=== PATIENT | male | born 1980 | race Caucasian/White ===

== ENCOUNTER 2023-11-12 21:28 | Emergency (ER) | payer OTHER, SELFPAY ==
[2023-11-12 21:31] VITALS: BP 148/107
[2023-11-12] MEDS: TORADOL 60 MG IM (23:29)
--- NOTE | 2023-11-13 00:22 | ED.MUSCINJ ---
HPI-Injury
General
Chief Complaint: Fall
Source: patient
Exam Limitations: none
Time Seen by Provider: 11/12/23 23:10
History of Present Illness-Injury
Is this injury a work related problem?: No
Is pt an associate of [facility]?: No
Initial Injury comments:
This is a 42 year old male that comes in with c/o left hip and groin pain. States that yesterday in the afternoon. he slipped in his tile floor. States that his left leg went out and he fell. States that he did the splits. States that he has had
left groin and hip pain and he was in bed all day. States that he took Tylenol PM and this did not help. States that here was no LOC and that he may have hit his head but he is not taking any thinners. States that he has had a headache and nausea.
Denies any fever, chills, chest pain, SOB, abd pain, vomiting, diarrhea, dizziness, urinary burning.
Past History
Past History
ED Past Medical History: Other (Back pain, Graves disease, Reactive airway)
ED Past Surgical History: Orthopedic (Right knee surgery) and Tonsilectomy
Social History
Tobacco: Smoker
Alcohol: None
Personal: Single
Living: alone
Review of Systems
Review of Systems
All Other Systems: ROS reviewed and negative except as documented in HPI and ROS
Constitutional: Reports no symptoms; Denies fever or chills
EENT: Reports no symptoms
Respiratory: Reports no symptoms; Denies cough or trouble breathing
Cardiac: Reports no symptoms; Denies chest pain
ABD/GI: Reports nausea; Denies abdominal pain, vomiting or diarrhea
: Reports no symptoms; Denies dysuria, frequency or urgency
Musculoskeletal: Reports joint pain (Left hip and groin pain)
Skin: Reports no symptoms
Neurological: Reports headache; Denies dizzy
Phy Exam
General Physical Exam
General Presentation: no apparent distress
General age: appears stated age
General Skin: warm and dry
General Habitus: obese
General Mental: alert
General Hydration: dry mucous membranes
ENT Exam
ENT Exam: TM's normal, pharynx normal and neck supple
Eye Exam
Eye Exam: EOMI
Cardiovascular Exam
Cardiovascular Exam: regular rate/rhythm, no edema and normal peripheral pulses
Pulmonary Exam
Pulmonary Exam: lungs clear, no respiratory distress, no rales, chest non tender, no crackles, no rhonchi, no wheezing and no cough
Gastrointestinal Exam
Gastrointestinal Exam: normal bowel sounds, non tender, soft, no organomegaly, no pulsatile mass and non distended
Musculoskeletal Exam
Musculoskeletal Exam: full ROM (Patient walked from Triage to room 35. ) and no edema
Skin Exam
Skin Exam: normal color, warm/dry, no rash and no petechia
Psychiatric Exam
Psychiatric Exam: normal mood/affect
Injury Course
Orders/Labs/Results
Orders:
Orders
11/12/23 23:26
Ketorolac [Toradol] 60 mg .ROUTE .STK-MED ONE
11/12/23 23:29
Ketorolac [Toradol] 60 mg IM NOW STA
11/13/23 00:25
CT Head W/o Iv Contrast Urgent
Comment:
Reason For Exam: Fall hitting head
11/13/23 00:44
CT Pelvis W/o Iv Contrast Urgent
Comment:
Reason For Exam: Left hip pain.
MDM/Problems Addressed
Differential Diagnosis Includes:
Contusion, Muscle pull groin
MDM/Problems Addressed:
This is a 42 year old male that comes in with c/o fall yesterday. States that he did the split on his tile floor at home. States that he has left hip and groin pain. States that there was no LOC. State that he does have a headache and nausea.
Will get X-ray of the left hip and pelvis and CT head.
Called and spoke with Halina dorantes as there was concern for a fracture at the posterior acetabulum on the left. He states again that there is no fracture. Also a text message was sent to the Radiologist biodiesel division manager for further evaluation but he did not
respond. Back into see patient. Explained that his CT of the head is normal along with the CT of the pelvic and hip. Will have patient use Tylenol and Ibuprofen for pain and alternate them. Patient can also use heat or ice which every makes him feel
better. Patient to return with any concerns.
Chronic conditions affecting care:
Obesity
Acute Exacerbation and/or Progression of Chronic Illness:
Obesity
*Radiology
Radiology exam reviewed: radiology read reviewed (CT head halina dorantes-NO acute hemorrhage, herniation or hydroccephalus. NO calvarial fracture. The visualized paranasal sinuses and mastoid air cells are clear. Pelvis- No acute fracture or traumatic
malalignment. NO significant soft tissue abnormality. )
*Pulse Oximetry
Patient hypoxic: no
*EKG
Interpreted by ED Provider?: NA
Rate: EKG- N/A
*Repairer Sash And Door Interpretation
Rate: Repairer Sash And Door- N/A
*Critical Care Note
Total Time (30-74mins, 75-104mins- exclusive of procedures): Not Applicable
ED Attending Note
-
Portions of this chart may have been created with voice recognition software.� Occasional wrong word or��sound alike� substitutions may have occurred due to the inherent limitations of voice recognition software.
Discharge Plan
Departure
Patient Disposition: Home (Routine Discharge)
Date of Disposition: 11/13/23
Time of Disposition: 02:18
Patient with high blood pressure during this ER visit?: Yes
Condition: Good
Covid-19: Not Applicable
Discharge Problem:
Contusion of left hip region
Instructions: Preventing falls in adults, Groin Strain (DC), Hip Pain ED, BLOOD PRESSURE
Referrals:
Dameon Myrick MD [Family Provider] - Call in 1-3 days for appt
Activity Restrictions/Additional Instructions:
As discussed, your CT of the head and Left hip/pelvis is negative for any acute process. You may use Tylenol 1000mg every 6 hours for pain and Ibuprofen 600mg every 6 hours with food for pain. So if you take Tylenol at 9am the Ibuprofen would be
due at 12 noon and the Tylenol at 3pm and Ibuprofen at 6pm. You may use heat or ice to the hip which ever makes you feel better. Follow up with the family doctor for recheck. IF YOU HAVE INCREASED OR CHANGING PAIN, OR YOU HAVE ANY OTHER CONCERNS
PLEASE RETURN TO THE EMERGENCY ROOM
Interventions
Interventions:
*Risk Screen - Suicide Last Done: 11/12/23 21:31
*General Assessment Last Done: 11/12/23 21:31
*Neglect/Abuse Screening Last Done: 11/12/23 21:31
*ED COVID-19 Vaccine History Last Done: 11/12/23 21:31
ED-Musculoskeletal Assessment Last Done: 11/13/23 01:03
ED- Neurological Assessment Last Done: 11/13/23 01:03
ED-Skin Assessment Last Done: 11/13/23 01:03
Discharge Date and Time
Print Language: GREEK
[2023-11-13 01:02] VITALS: BP 152/99
== END 2023-11-13 02:49 | disposition home or self-care (01) ==
LOC: EMR 21:28
PROVIDERS: EMERGENCY PHYSICIAN Student in an Organized Health Care Education/Training Program; FAMILY PHYSICIAN Internal Medicine
DX: S70.02XA Contusion of left hip, initial encounter (principal); W01.0XXA Fall on same level from slipping, tripping and stumbling without subsequent striking against object, initial encounter; F17.200 Nicotine dependence, unspecified, uncomplicated; E66.9 Obesity, unspecified
CPT/HCPCS: 99284; 96372; 70450; 72192

== ENCOUNTER 2024-04-09 04:28 | Emergency (ER) | payer OTHER, SELFPAY ==
[2024-04-09 05:05] VITALS: BP 153/116
[2024-04-09 07:37] LABS: % Basophils 0.4 % (0-2); % Eosinophils 3.1 % (0-6); % Immature Granulocytes 0.4 % (0-0.5); % Lymphocytes 28.2 % (20.5-51.1); % Monocytes 5.9 % (1.7-9.3); Absolute Basophils 0.1 10^3/uL (0-0.2); Absolute Eosinophils 0.4 10^3/uL (0-0.7); Absolute Immature Granulocytes 0.1 10^3/uL (0-0.05); Absolute Lymphocytes 3.2 10^3/uL (1.2-3.4); Absolute Monocytes 0.7 10^3/uL (0.1-0.6); Absolute Neutrophils 7.1 10^3/uL (1.4-6.5); Hemoglobin 17.3 g/dL (13.0-18.0); Mean Corp Hgb Conc. 35.3 g/dL (33.0-37.0); Mean Corpuscular Hgb 31.3 pg (27.0-31.0); Mean Corpuscular Volume 88.6 fL (80.0-94.0); Mean Platelet Volume 10.1 fL (7.4-10.4); Nucleated Red Blood Cells % 0 % (-); Platelet Count 252 10^3/uL (130-400); Red Blood Cell Count 5.53 10^6/uL (4.70-6.10); Red Cell Dist. Width 12.1 % (11.5-14.5); White Blood Cell Count 11.4 10^3/uL (4.8-10.8)
[2024-04-09 07:52] LABS: ALT (SGPT) 66 U/L (0-50); AST (SGOT) 34 U/L (17-59); Albumin 5.1 g/dl (3.5-5.0); Alkaline Phosphatase 77 U/L (38-126); Blood Urea Nitrogen 14 mg/dl (9-20); Calcium 9.5 mg/dl (8.4-10.2); Carbon Dioxide 20 mmol/L (22-30); Chloride 105 mmol/L (98-107); Glucose 135 mg/dl (70-99); Potassium 4.6 mmol/L (3.5-5.1); Sodium 139 mmol/L (135-145); Total Protein 8.2 g/dl (6.3-8.2); eGFR > 60.00
[2024-04-09 08:02] LABS: NT-proBNP < 20.0 pg/ml; Troponin I < 0.012 ng/ml
--- NOTE | 2024-04-09 08:36 | ED.GENMED ---
History of Present Illness
General
Chief Complaint: Weakness
Source: patient
Exam Limitations: none
Time Seen by Provider: 04/09/24 08:19
History of Present Illness
History of Present Illness:
43-year-old male presents with 1 months worth of cough and shortness of breath. He also notes pain to the left side of the chest worse with breathing and coughing. He denies hemoptysis. He was thought to have bronchitis. He was given a course of
amoxicillin and prednisone. He felt slightly better when he started taking the medicine however symptoms have returned. He has been off of the medicine for about a week. No recent travel or surgery. He is thought to have Graves' disease. No
other complaints at this time
Past History
Past History
ED Past Medical History: Other (Back pain, Graves disease, Reactive airway)
ED Past Surgical History: Orthopedic (Right knee surgery) and Tonsilectomy
Social History
Tobacco: Smoker
Alcohol: None
Personal: Single
Living: alone
Phy Exam
Physical Exam
Physical Exam:
General: Unkempt obese male with increased work of breathing
HEENT: Normocephalic atraumatic
Heart: Tachycardic but regular
Lungs: Breath sounds diminished bilaterally secondary to body habitus
Extremities: No cyanosis or edema
Sepsis
Sepsis Screening
Sepsis Assessment: Sepsis Ruled Out
Sepsis Screen
Sepsis Screen: Sepsis Ruled Out
Date: 04/09/24
Time: 12:29
Course
Orders/Labs/Results
Orders:
Orders
04/09/24 04:57
Electrocardiogram (*1) Urgent
Reason for Study: Other
Other Reason for Exam: Respiratory Distress
Cardiac Monitoring- Treatment ONCE
EKG- Treatment ONCE
IV Insert/Care/Rem.- Treatment PRN
O2 Therapy [RESP] Urgent
Titrate/Wean O2 to maintain O2 sat greater than (%): 93
Special Instructions: TO MAINTAIN CONTINUOUS O2 SATS >/= 93%
Pulse Ox/cont/shift [RESP] Urgent
Quantity: 1
Special Instructions: continuous pulse ox
04/09/24 07:17
Complete Blood Count/With Diff Urgent
Comprehensive Metabolic Panel Urgent
Free T4 Urgent
NT-proBNP Urgent
TSH Reflex To Free T4 Urgent
Comment: ADD ON
Troponin I Urgent
04/09/24 08:35
Add On- LAB Urgent
Tests Added?: tsh reflex to t4
CT Chest PE Study Urgent
Comment:
Reason For Exam: sob, cough, tachycardia
Ipratropium/Albuterol Sulfate [Duoneb] 3 ml INH R NOW STA
04/09/24 09:01
COVID-19 Antigen Urgent
Source: Nasal Swab
Influenza A+B Rapid Molecular Urgent
EMILEE Source: Nasal Swab
Specimen Description:
Abnormal Lab Results
04/09/24
07:17
WBC 11.4 H 10^3/uL
(4.8-10.8)
MCH 31.3 H pg
(27.0-31.0)
Abs Immat Gran (auto) 0.1 H 10^3/uL
(0-0.05)
Absolute Neuts (auto) 7.1 H 10^3/uL
(1.4-6.5)
Absolute Monos (auto) 0.7 H 10^3/uL
(0.1-0.6)
Carbon Dioxide 20 L mmol/L
(22-30)
Glucose 135 H mg/dl
(70-99)
ALT 66 H U/L
(0-50)
Albumin 5.1 H g/dl
(3.5-5.0)
TSH (Reflex) 0.05 L uIU/ml
(0.47-4.68)
04/09/24 07:17
04/09/24 07:17
Vital Signs
Initial and Last Documented VS:
Initial Vital Signs
Temp Pulse Resp BP Pulse Ox
98.7 F 119 24 153/116 97
04/09/24 05:05 04/09/24 05:05 04/09/24 05:05 04/09/24 05:05 04/09/24 05:05
Last Documented Vital Signs
Temp Pulse Resp BP Pulse Ox
98.7 F 101 17 144/91 93
04/09/24 05:05 04/09/24 10:15 04/09/24 10:15 04/09/24 09:03 04/09/24 10:15
MDM/Problems Addressed
Differential Diagnosis Includes:
Patient here with persistent cough and shortness of breath. Consider bronchitis versus pneumonia versus PE. He does have left-sided chest wall discomfort worse with coughing and breathing. Consider chest wall strain versus rib fracture versus PE.
He is tachycardic could be related to his respiratory illness versus underlying Graves' disease. TSH added.
Due to the resting tachycardia shortness of breath with pleuritic pain ordered PE study. DuoNeb ordered as well
*Critical Care Note
Total Time (30-74mins, 75-104mins- exclusive of procedures): Not Applicable
Update Note
Update Note:
Workup here negative. PE study negative for PE or pneumonia or fracture. Free thyroid hormone is normal. Suspect continuation of bronchitis. Will prescribe inhaler steroid and an antibiotic to cover.
ED Attending Note
-
Portions of this chart may have been created with voice recognition software.� Occasional wrong word or��sound alike� substitutions may have occurred due to the inherent limitations of voice recognition software.
Discharge Plan
Departure
Patient Disposition: Home (Routine Discharge)
Date of Disposition: 04/09/24
Time of Disposition: 12:25
Patient with high blood pressure during this ER visit?: No
Discharge Problem:
Acute bronchitis
Instructions: Acute Bronchitis, Adult (DC)
Prescriptions:
New
doxycycline hyclate 100 mg tablet
100 mg PO BID Qty: 14 0RF
albuterol sulfate [Ventolin HFA] 90 mcg/actuation HFA aerosol inhaler
1 inh inhalation Q6H PRN (Reason: shortness of breath or wheezing) Qty: 1 0RF
prednisone 10 mg Tablet
See Rx Instructions .ROUTE .COMPLEX Qty: 45 0RF
Rx Instructions:
Take By Mouth:
50 mg daily x3 days, 40 mg daily x3 days,
30 mg daily x3 days, 20 mg daily x3 days,
10 mg daily x3 days
Referrals:
Timothy Reynolds MD [Family Provider] -
Activity Restrictions/Additional Instructions:
Take medicine as directed. Please return here for worsening symptoms otherwise follow-up with your doctor. As discussed, your thyroid is normal
Interventions
Interventions:
*Risk Screen - Suicide Last Done: 04/09/24 05:05
*General Assessment Last Done: 04/09/24 05:05
*Neglect/Abuse Screening Last Done: 04/09/24 05:05
ED- Fall Risk Assessment Last Done: 04/09/24 05:05
*ED COVID-19 Vaccine History Last Done: 04/09/24 05:05
ED- Cardiac Assessment Last Done: 04/09/24 10:14
ED- Neurological Assessment Last Done: 04/09/24 10:14
ED- Pulmonary Assessment Last Done: 04/09/24 10:14
Discharge Date and Time
Print Language: BULGARIAN
[2024-04-09 09:03] VITALS: BP 144/91
[2024-04-09 09:15] VITALS: BMI 57.6
[2024-04-09] MEDS: DUONEB 3 ML INH (09:18)
[2024-04-09 09:45] LABS: COVID-19 Antigen Negative (Negative)
[2024-04-09 10:45] LABS: TSH Reflex To Free T4 0.05 uIU/ml (0.47-4.68)
[2024-04-09 11:29] LABS: Free T4 1.39 ng/dl (0.78-2.19)
== END 2024-04-09 13:02 | disposition home or self-care (01) ==
LOC: EMR 04:28
PROVIDERS: Emergency Medicine; Physician Assistant; EMERGENCY PHYSICIAN Emergency Medicine; FAMILY PHYSICIAN Internal Medicine
DX: J20.9 Acute bronchitis, unspecified (principal); F17.200 Nicotine dependence, unspecified, uncomplicated
CPT/HCPCS: 94640; 99284; 71275; 80053; 83880; 84439; 84443; 84484; 85025; 87502; 87811; 93005; Q9967

== ENCOUNTER 2024-04-23 16:30 | Emergency (ER) | payer OTHER, SELFPAY ==
[2024-04-23 16:31] VITALS: BP 171/108
--- NOTE | 2024-04-23 16:38 | EDRN ---
pt. very agitated in triage. states he does not want to 'wait around for nine hours like last time.' Pt. made aware of the longest wait time. RN offered blood work but pt stating he does want some one 'doesn't know what they are doing,' as he states
last time he had bruising from the blood work. RN explained that even with the most experienced product grader, bruising can still occur. Pt. states 'not if they're trained right and know what they're doing.' RN explained that all the staff is is
properly trained but it can still occur. RN offered to the pt that he can just wait to speak to one of the doctors in the back if he doesn't want to get blood work done now due to pt's agitated status over getting the blood work done currently. Pt.
agreed to wait and RN made made sure he understood that waiting on blood work could prolong his time here and pt continued to be agitated and make remarks about the staff. Pt. asked to leave the room and sit in the waiting room. Another RN came into
room due to pt's agitated comments to help juvenile correctional officer in asking pt. to sit and wait in the waiting room. Pt. barged back into triage room twice to continue on about the staff and how he's not the one that is agitated. Pt. asked to leave by RNs and
wait in the waiting room. Security called at this time to escort pt. back to waiting room.
--- NOTE | 2024-04-23 20:12 | ED.GENMED ---
History of Present Illness
General
Chief Complaint: Cold/Flu/URI Symptoms
Source: patient and records
Exam Limitations: none
Time Seen by Provider: 04/23/24 19:58
History of Present Illness
History of Present Illness:
43yoM with a history of obesity and tobacco use presenting for evaluation of a cough and sore throat. Patient states he has been sick since March 07. He reports a sore throat, cough, and racing heart. He had fevers at symptom onset which have
resolved. His cough seems to be improving but his sore throat is lingering and he continues to have hoarseness. He was seen by his PCP at symptom onset and was given a prescription for amoxicillin and prednisone. He was also seen in the ED about
2 weeks ago for similar complaints. He had a workup done including a CTA chest which was unremarkable. He was diagnosed with bronchitis and given a prescription for doxycycline, prednisone, and albuterol inhaler. Patient is here with persistent
symptoms.
Past History
Past History
ED Past Medical History: Other (Back pain, Graves disease, Reactive airway)
ED Past Surgical History: Orthopedic (Right knee surgery) and Tonsilectomy
Social History
Tobacco: Smoker
Alcohol: None
Personal: Single
Living: alone
Phy Exam
General Physical Exam
General Presentation: well appearing and no apparent distress
General age: appears stated age
General Skin: warm and dry
General Habitus: normal
General Mental: alert
ENT Exam
ENT Exam: TM's normal, neck supple and pharyngeal erythema (Erythema present to posterior oropharynx. No tonsillar exudates. Uvula midline. No trismus. Normal phonation. Tolerating oral secretions without difficulty. )
Cardiovascular Exam
Cardiovascular Exam: regular rate/rhythm and no murmur
Pulmonary Exam
Pulmonary Exam: lungs clear, no respiratory distress, no rales, no crackles, no rhonchi and no wheezing
Neurological Exam
Neurological Exam: alert
Anton Coma Scale
Eye Opening: Spontaneous
Verbal Response: Oriented
Motor Response: Obeys Commands
GCS Total Score: 15
Skin Exam
Skin Exam: normal color and warm/dry
Psychiatric Exam
Psychiatric Exam: anxious
Course
Orders/Labs/Results
Orders:
Orders
04/23/24 20:11
Electrocardiogram (*1) Urgent
Reason for Study: Chest Pain
EKG- Treatment ONCE
CR Chest - 2 Views Urgent
Comment:
Reason For Exam: CP
04/23/24 20:21
COVID-19 Antigen Urgent
Source: Nasal Swab
Complete Blood Count/With Diff Urgent
Comprehensive Metabolic Panel Urgent
Free T4 Urgent
Magnesium Urgent
Monotest Urgent
TSH Reflex To Free T4 Urgent
Troponin I Urgent
Rapid Strep Group A Urgent
EMILEE Source: Throat/Pharynx
Specimen Description:
Date Specimen was Collected: 04/23/24
Time Specimen was Collected: 20:13
04/23/24 21:08
Influenza A+B Rapid Molecular Urgent
EMILEE Source: Nasal Swab
Specimen Description:
04/23/24 22:31
Troponin I Urgent
04/23/24 23:02
RSV [Respiratory Syncytial Virus] Urgent
EMILEE Source: Nasalpharynx
Specimen Description:
Date Specimen was Collected: 04/23/24
Time Specimen was Collected: 22:55
Abnormal Lab Results
04/23/24
20:21
WBC 15.8 H 10^3/uL
(4.8-10.8)
MCH 31.1 H pg
(27.0-31.0)
Abs Immat Gran (auto) 0.1 H 10^3/uL
(0-0.05)
Absolute Neuts (auto) 12.0 H 10^3/uL
(1.4-6.5)
Absolute Monos (auto) 0.8 H 10^3/uL
(0.1-0.6)
Immature Gran % 0.6 H %
(0-0.5)
Neutrophils % 76.1 H %
(42.2-75.2)
Lymphocytes % 16.8 L %
(20.5-51.1)
Glucose 108 H mg/dl
(70-99)
ALT 61 H U/L
(0-50)
TSH (Reflex) 0.06 L uIU/ml
(0.47-4.68)
04/23/24 20:21
04/23/24 20:21
Vital Signs
Initial and Last Documented VS:
Initial Vital Signs
Temp Pulse Resp BP Pulse Ox
97.9 F 101 20 171/108 96
04/23/24 16:31 04/23/24 16:31 04/23/24 16:31 04/23/24 16:31 04/23/24 16:31
Last Documented Vital Signs
Temp Pulse Resp BP Pulse Ox
98.2 F 99 20 148/99 99
04/23/24 22:56 04/24/24 00:00 04/24/24 00:00 04/24/24 00:00 04/24/24 00:00
MDM/Problems Addressed
Differential Diagnosis Includes:
43yoM here with ongoing sore throat and cough x 6 weeks. Seen by PCP and had prior ED visit for the same. Prescribed 2 courses of abx and steroids. Cough improved but sore throat unchanged. Also c/o heart racing. He is hypertensive with otherwise
reassuring vitals. There is erythema in the posterior oropharynx without clinical signs of [employer] PRODUCT CONSULTANT, RPA, epiglottitis. Differential diagnosis includes but is not limited to: laryngitis, viral illness, irritation from coughing, GERD
Initial ED plan: Check cardiac labs, TSH, COVID/flu swab, mono testing, strep swab, EKG, and CXR.
*EKG
Interpreted by ED Provider?: Yes
EKG Intrepretation Date: 04/23/24
Heart Rate: 94
Rate: normal
Rhythm: sinus
[place]: normal axis
Interval: normal interval
QRS Pattern: normal QRS
Ischemia: no ischemia
*Critical Care Note
Total Time (30-74mins, 75-104mins- exclusive of procedures): Not Applicable
Update Note
Update Note:
TSH low at 0.06 although T4 is normal. This is consistent with labs from 2 weeks ago. Leukocytosis noted with a WBC of 15 which is nonspecific. Remainder of labs unremarkable. EKG shows NSR without ischemic changes and troponin is WNL. Strep and
COVID/flu/RSV testing negative. CXR appears clear per my interpretation, formal radiology report is pending. No indication for hospitalization at this time. No indication for additional antibiotics and steroids did not seem to help him previously.
Supportive care discussed. He was advised to f/u with his PCP and ENT. ED return precautions discussed. Patient in agreement with plan and was discharged in stable condition.
ED Attending Note
-
Portions of this chart may have been created with voice recognition software.� Occasional wrong word or��sound alike� substitutions may have occurred due to the inherent limitations of voice recognition software.
Discharge Plan
Departure
Patient Disposition: Home (Routine Discharge)
Date of Disposition: 04/24/24
Time of Disposition: 00:04
Patient with high blood pressure during this ER visit?: Yes
Discharge Problem:
Laryngitis, Palpitations
Instructions: Laryngitis ED
Prescriptions:
No Action
No Current Medications
0
Referrals:
Mega Stacy MD [Active] -
Timothy Reynolds MD [Family Provider] -
Macy Junior MD [Active] -
Activity Restrictions/Additional Instructions:
Continue using honey and salt water gargles for your sore throat.
Please call on Thursday to schedule a follow-up with ENT and your family doctor. Return to the ER with any new or worsening symptoms.
Interventions
Interventions:
*Risk Screen - Suicide Last Done: 04/23/24 16:31
*General Assessment Last Done: 04/23/24 16:31
*Neglect/Abuse Screening Last Done: 04/23/24 16:31
ED- Fall Risk Assessment Last Done: 04/23/24 23:35
*ED COVID-19 Vaccine History Last Done: 04/23/24 20:17
*Nursing Disposition Last Done: 04/24/24 00:28
ED-EENT Assessment Last Done: 04/23/24 23:35
ED- Pulmonary Assessment Last Done: 04/23/24 23:35
Discharge Date and Time
Discharge Date/Time: 04/24/24 00:29
Print Language: VIETNAMESE
[2024-04-23 20:15] VITALS: BMI 54.3
[2024-04-23 20:39] LABS: % Basophils 0.3 % (0-2); % Eosinophils 1.2 % (0-6); % Immature Granulocytes 0.6 % (0-0.5); % Lymphocytes 16.8 % (20.5-51.1); % Neutrophils 76.1 % (42.2-75.2); Absolute Eosinophils 0.2 10^3/uL (0-0.7); Absolute Immature Granulocytes 0.1 10^3/uL (0-0.05); Absolute Lymphocytes 2.7 10^3/uL (1.2-3.4); Absolute Monocytes 0.8 10^3/uL (0.1-0.6); Hematocrit 48.4 % (39.0-52.0); Mean Corp Hgb Conc. 35.1 g/dL (33.0-37.0); Mean Corpuscular Hgb 31.1 pg (27.0-31.0); Mean Corpuscular Volume 88.5 fL (80.0-94.0); Mean Platelet Volume 9.2 fL (7.4-10.4); Nucleated Red Blood Cells % 0 % (-); Platelet Count 260 10^3/uL (130-400); Red Blood Cell Count 5.47 10^6/uL (4.70-6.10); Red Cell Dist. Width 12.3 % (11.5-14.5); White Blood Cell Count 15.8 10^3/uL (4.8-10.8)
[2024-04-23 20:50] VITALS: BP 134/85
[2024-04-23 21:00] LABS: ALT (SGPT) 61 U/L (0-50); AST (SGOT) 27 U/L (17-59); Albumin 4.6 g/dl (3.5-5.0); Alkaline Phosphatase 81 U/L (38-126); Blood Urea Nitrogen 13 mg/dl (9-20); Calcium 9.4 mg/dl (8.4-10.2); Carbon Dioxide 22 mmol/L (22-30); Chloride 104 mmol/L (98-107); Estimated Creatinine Clearance > 125 ml/min; Glucose 108 mg/dl (70-99); Magnesium 1.9 mg/dl (1.6-2.3); Potassium 4.3 mmol/L (3.5-5.1); Sodium 137 mmol/L (135-145); Total Bilirubin 1.1 mg/dl (0.2-1.3); Total Protein 7.2 g/dl (6.3-8.2); eGFR > 60.00
[2024-04-23 21:04] LABS: COVID-19 Antigen Negative (Negative); Troponin I < 0.012 ng/ml
[2024-04-23 21:13] LABS: Monotest Negative (Negative)
[2024-04-23 21:30] LABS: TSH Reflex To Free T4 0.06 uIU/ml (0.47-4.68)
[2024-04-23 22:00] LABS: Free T4 1.38 ng/dl (0.78-2.19)
[2024-04-23 22:56] VITALS: BP 156/116
[2024-04-23 23:00] LABS: Troponin I < 0.012 ng/ml
[2024-04-24] VITALS: BP 148/99
== END 2024-04-24 00:29 | disposition home or self-care (01) ==
LOC: EMR 16:30
PROVIDERS: Physician Assistant; EMERGENCY PHYSICIAN Student in an Organized Health Care Education/Training Program; FAMILY PHYSICIAN Internal Medicine
DX: J04.0 Acute laryngitis (principal); R00.2 Palpitations; F17.200 Nicotine dependence, unspecified, uncomplicated; Z11.52 Encounter for screening for COVID-19
CPT/HCPCS: 99285; 71046; 80053; 83735; 84439; 84443; 84484; 85025; 86308; 87070; 87502; 87807; 87811; 87880; 93005

== ENCOUNTER 2025-02-03 11:42 | Inpatient (IN) | payer OTHER, SELFPAY ==
[2025-02-03] VITALS (7 sets, daily range): BP systolic 130–166; BP diastolic 82–124; BMI 58.6
[2025-02-03 09:45] LABS: Hematocrit 47.5 % (39.0-52.0); Hemoglobin 17.1 g/dL (13.0-18.0); Mean Corp Hgb Conc. 36.0 g/dL (33.0-37.0); Mean Corpuscular Volume 87.2 fL (80.0-94.0); Nucleated Red Blood Cells % 0 % (-); Platelet Count 240 10^3/uL (130-400); Red Cell Dist. Width 12.1 % (11.5-14.5)
[2025-02-03 10:05] LABS: ALT (SGPT) 68 U/L (0-50); AST (SGOT) 29 U/L (17-59); Albumin 4.7 g/dl (3.5-5.0); Alkaline Phosphatase 117 U/L (38-126); Blood Urea Nitrogen 13 mg/dl (9-20); Calcium 10.2 mg/dl (8.4-10.2); Carbon Dioxide 22 mmol/L (22-30); Chloride 100 mmol/L (98-107); Glucose 484 mg/dl (70-99); Potassium 4.6 mmol/L (3.5-5.1); Sodium 131 mmol/L (135-145); Total Protein 7.8 g/dl (6.3-8.2); eGFR > 60.00
--- NOTE | 2025-02-03 11:09 | ED.GENMED ---
History of Present Illness
General
Chief Complaint: Skin Problem
Source: patient
Exam Limitations: none
Time Seen by Provider: 02/03/25 10:52
History of Present Illness
History of Present Illness:
44-year-old male complaining of left medial thigh pain swelling and bleeding. Went to urgent care today. Bleeding was significant in urgent care. No fever or chills. Has also noted frequency and urgency.
Past History
Past History
ED Past Medical History: Other (Back pain, Graves disease, Reactive airway)
ED Past Surgical History: Orthopedic (Right knee surgery) and Tonsilectomy
Social History
Tobacco: Smoker
Alcohol: None
Personal: Single
Living: alone
Review of Systems
Review of Systems
All Other Systems: Not applicable
Constitutional: Denies fever or chills
Respiratory: Reports no symptoms
Cardiac: Reports no symptoms
Phy Exam
Physical Exam
Physical Exam:
GENERAL: Alert and oriented. Anxious. Significant elevated BMI
EYE: Orbits normal.
NECK: Supple
CARDIAC: Regular rate and rhythm without any obvious murmurs.
LUNGS: Clear breath sounds,normal
ABDOMEN: Soft, without focal tenderness or distention. Elevated BMI
NEUROLOGICAL: Alert and oriented , grossly non-focal
SKIN: Warm and dry, large area of swelling erythema to the left medial proximal thigh with tenderness and fluctuance. Superficial to this appears to be an inflamed varicose vein with slight bleeding
MUSCULOSKELETAL: No edema,no deformity.Good color
PSYCH: Normal and appropriate interaction.
Sepsis
Sepsis Screening
Sepsis Assessment: Sepsis
Sepsis Screen
Sepsis Screen: Sepsis
Date: 02/03/25
Time: 15:06
Course
Orders/Labs/Results
Orders:
Orders
02/03/25 09:36
Complete Blood Count/With Diff Urgent
Comprehensive Metabolic Panel Urgent
Glycohemoglobin (HgbA1c) Urgent
Lactic Acid Urgent
02/03/25 10:52
Cardiac Monitoring- Treatment ONCE
IV Insert/Care/Rem.- Treatment PRN
0.9% Sodium Chloride 1000 ml [Nss] 1,000 ml IV BOLUS
02/03/25 10:53
Piperacillin/Tazo 4.5 Gram [Zosyn] 4.5 gram in 100 ml IV NOW
02/03/25 10:59
Vancomycin [Vancocin] 2,000 mg 0.9% Sodium Chloride 500 ml [Nss] 500 ml IV NOW
02/03/25 11:04
Add On- LAB Stat
Tests Added?: Hba1c
Nursing to Place Non Medication Order As Directed
Physician Order: please do med rec
Above order entered?: Yes
02/03/25 11:05
B-Hydroxybutyrate Urgent
Blood Culture Q30M
EMILEE Source: Blood/Venous
Specimen Description:
Blood Culture Q30M
EMILEE Source: Blood/Venous
Specimen Description:
02/03/25 11:11
CT Lower Ext W/iv Cont Lt Urgent
Comment:
Reason For Exam: Left proximal thigh abscess
02/03/25 11:16
Diabetes Management by Nurse Practitioner Stat
Consulting Provider: Oriana Medina
Was provider already notified?: Yes
Reason for Consult: Insulin Management
Urinalysis Reflex To Culture Urgent
Date Specimen was Collected: 02/03/25
Time Specimen was Collected: 11:15
Urine Microscopic Reflex Cult Urgent
Urine Culture Urgent
EMILEE Source: U
Specimen Description:
Date Specimen was Collected: 02/03/25
Time Specimen was Collected: 11:15
02/03/25 11:21
Lorazepam [Ativan] 0.5 mg PO NOW STA
02/03/25 11:32
Admit/Transfer Patient As Directed
Co-Sign Provider:
Level of Care: Inpatient admission
Assign to:: IMU- Intermediate Care
Physician / Group: Sera
Diagnosis: sepsis, L thigh abscess
Reason for Hospitalization: sepsis
Expected length of stay greater than two midnights?: Yes
ELOS- Estimated Length of Stay in days: 4
I certify the patient meets the requirements for IP care: Yes
PRN Pain Medication Management As Directed
May give lesser potent ordered pain med per pt: Yes
preference::
Protocol:: Medication orders for pain may be administered in a
manner that supports deferring to patient preference
when the pt is:
- Requesting an ordered lesser potent pain medication.
Least to most potent pain medications are defined
as: acetaminophen < NSAID < tramadol < opioids
(morphine, oxycodone, hydromorphone).
- Requesting a lesser dose of the same medication IF
ORDERED.
- Requesting a less intrusive route of administration
if both routes are prescribed by the provider (PO <
IV).
02/03/25 11:33
Code Status As Directed
Resuscitation Status: Full Code
02/03/25 11:35
Lactated Ringers [Lr] 2,750 ml IV BOLUS
02/03/25 11:36
Add On- LAB Routine
Tests Added?: a1c
02/03/25 11:38
Insulin Glargine Lantus [Lantus] 15 units Subcutaneous Insulin Syringe [Syringe-Insulin] 0 unit SC NOW
02/03/25 12:00
Insulin Aspart [NOVOLOG vial] 12 units SC ONCE ONE
02/03/25 13:33
Dextrose 50%-Water [Dextrose 50% Syringe] 12.5 grams IV [id number] PRN
Glucagon [GlucaGen] 1 mg IM PRN PRN
Lactated Ringers [Lr] 1,000 ml IV 125 mls/hr
Methimazole [Tapazole] 7.5 mg PO QPM
Metoprolol Xl [Toprol Xl] 25 mg PO QPM
02/03/25 13:33
INFECTIOUS DISEASE CONSULT Routine
Consulting Provider: Angie Bermudez
Was physician already notified: Yes
Reason for consult: sepsis, L thigh abscess
Activity As Directed
Activity Level: With Assistance
Bedside Glucose Monitoring As Directed
Frequency: AC&HS
Additional Instructions:: Change to q6h if pt on TPN, tube feeding or not eating
Intake/ Output As Directed
Frequency: Per unit guidelines
Vital Signs As Directed
Frequency: Per unit guidelines
DX Deep Vein Thrombosis Video Routine
02/03/25 14:16
Lactic Acid Q4H
Comment: repeat q4 hours x 4 or until less than 2 mmol/L
02/03/25 16:30
Insulin Aspart Corrective Mod [Novolog Flexpen-Moderate Resistance] See Protocol SC AC
02/03/25 17:00
Piperacillin/Tazo 4.5 Gram [Zosyn] 4.5 gram in 100 ml IV Q6H
02/03/25 17:33
Lactic Acid Q4H
Comment: repeat q4 hours x 4 or until less than 2 mmol/L
02/03/25 18:00
Enoxaparin Sodium [Lovenox] 40 mg SC QPM
02/03/25 21:33
Lactic Acid Q4H
Comment: repeat q4 hours x 4 or until less than 2 mmol/L
02/04/25 01:33
Lactic Acid Q4H
Comment: repeat q4 hours x 4 or until less than 2 mmol/L
02/04/25 06:00
Basic Metabolic Panel IN AM
Complete Blood Count/No Diff IN AM
Glycohemoglobin (HgbA1c) IN AM
02/05/25 06:00
Basic Metabolic Panel IN AM
Complete Blood Count/No Diff IN AM
02/06/25 06:00
Basic Metabolic Panel IN AM
Complete Blood Count/No Diff IN AM
02/07/25 06:00
Basic Metabolic Panel IN AM
Complete Blood Count/No Diff IN AM
02/08/25 06:00
Basic Metabolic Panel IN AM
Complete Blood Count/No Diff IN AM
02/09/25 06:00
Basic Metabolic Panel IN AM
Complete Blood Count/No Diff IN AM
02/10/25 06:00
Basic Metabolic Panel IN AM
Complete Blood Count/No Diff IN AM
Abnormal Lab Results
02/03/25 02/03/25
09:36 11:16
WBC 12.4 H 10^3/uL
(4.8-10.8)
MCH 31.4 H pg
(27.0-31.0)
MPV 10.8 H fL
(7.4-10.4)
Abs Immat Gran (auto) 0.1 H 10^3/uL
(0-0.05)
Absolute Neuts (auto) 8.7 H 10^3/uL
(1.4-6.5)
Absolute Monos (auto) 1.0 H 10^3/uL
(0.1-0.6)
Immature Gran % 0.6 H %
(0-0.5)
Lymphocytes % 18.4 L %
(20.5-51.1)
Sodium 131 L mmol/L
(135-145)
Glucose 484 H* mg/dl
(70-99)
Hemoglobin A1c 9.5 H %
(4.0-5.9)
Lactic Acid 3.5 H mmol/L
(0.7-2.0)
ALT 68 H U/L
(0-50)
Urine Bacteria (Reflex) Moderate A
(Negative)
Urine Glucose 4+ A
(Negative)
Urine Albumin (Reflex) 1+ A
(Neg - Trace)
02/03/25 09:36
02/03/25 09:36
Vital Signs
Initial and Last Documented VS:
Initial Vital Signs
Temp Pulse Resp BP
98.0 F 129 25 149/106
02/03/25 09:22 02/03/25 09:22 02/03/25 09:22 02/03/25 09:22
Last Documented Vital Signs
Temp Pulse Resp BP
98.5 F 116 17 130/104
02/03/25 13:48 02/03/25 13:30 02/03/25 13:30 02/03/25 11:21
MDM/Problems Addressed
Differential Diagnosis Includes:
Patient with a large infected abscess left medial thigh. Lactic acid is elevated although clinically not septic. Doubt DKA. Bicarb normal. Beta hydroxybutyrate pending. Discussed with medicine and surgery. Will get CT scan.
*Radiology
Radiology exam reviewed: radiology read reviewed (Edematous changes of the soft tissue of the medial thigh. No obvious abscess)
*Pulse Oximetry
Oxygen Mode of Delivery: Room air
Patient hypoxic: not evaluated
*Critical Care Note
Total Time (30-74mins, 75-104mins- exclusive of procedures): Not Applicable
Data Reviewed
Review of Other/Old Records Reveals: Labs, Records and Testing
ED Attending Note
-
Portions of this chart may have been created with voice recognition software.� Occasional wrong word or��sound alike� substitutions may have occurred due to the inherent limitations of voice recognition software.
Discharge Plan
Departure
Patient Disposition: Admit
Date of Disposition: 02/03/25
Time of Disposition: 11:12
Presentation/result/management discussed w/ accepting MD/DO: General surgery
Discharge Problem:
Left proximal thigh abscess, New onset diabetes
Interventions
Interventions:
*Risk Screen - Suicide Last Done: 02/03/25 09:22
*General Assessment Last Done: 02/03/25 12:31
*Neglect/Abuse Screening Last Done: 02/03/25 12:30
*ED- Fall Risk Assessment Last Done: 02/03/25 12:30
*ED COVID-19 Vaccine History Last Done: 02/03/25 12:31
*ED Influenza Vaccine History Last Done: 02/03/25 12:31
*Nursing Disposition Last Done: 02/03/25 13:45
Discharge Date and Time
Discharge Date/Time: 02/03/25 13:45
[2025-02-03] MEDS: ZOSYN 100 IV ×3 (11:13→23:07)
[2025-02-03] MEDS: NSS 1000 IV (11:13)
--- NOTE | 2025-02-03 11:17 | HPS.HSE ---
Family Physician
-
Family Physician: INTERVIEWE UNKNOWN - PT NOT
Chief Complaint
-
L thigh pain, swelling, and bleeding
History of Present Illness
44 y/o M with PMHx Graves disease who p/w CC L thigh pain, swelling, and bleeding patient reports that symptoms began 3 to 4 days ago and have progressively worsened. He went to urgent care and had some bleeding at the site that appears to have
been due to a varicose vein. Denies any fevers. Does report that he has had increased thirst and polyuria. Denies any other acute complaints.
Medical History
Past Medical History
Past Medical History: Reports Other (as per HPI)
Past Surgical History: Reports Other (N/A)
Social History
Tobacco: Smoker
Alcohol: Occasional
Drug: Other (THC)
Family History
Family History: Not pertinent
Allergies / Home Medications
Allergies reflects when Allergies were last updated in [facility].
Home Medications with original date entered in [facility]
Allergy/Medication List:
Allergies
Allergy/AdvReac Type Severity Reaction Status Date / Time
No Known Allergies Allergy Verified 02/03/25 09:28
Home Medications
Medical Marijuana 1 inh inhalation HS Pain 02/03/25
methimazole 5 mg tablet 7.5 mg PO QPM Thyroid 02/03/25
metoprolol succinate 25 mg tablet,extended release 24 hr 25 mg PO QPM Blood Pressure 02/03/25
Review of Systems
-
History Source: Patient
A 12 point ROS was completed and negative except as noted: Yes
Physical Exam
Vital Signs
Vital Signs
Temp Pulse Resp BP
98.0 F 129 25 149/106
02/03/25 09:22 02/03/25 09:22 02/03/25 09:22 02/03/25 09:22
Physical Exam
General: Other (.)
Laboratory Results
-
02/03/25 09:36
02/03/25 09:36
Laboratory Results
Lactic Acid 3.5 mmol/L (0.7-2.0) H 02/03/25 09:36
Total Bilirubin 1.2 mg/dl (0.2-1.3) 02/03/25 09:36
AST 29 U/L (17-59) 02/03/25 09:36
ALT 68 U/L (0-50) H 02/03/25 09:36
Alkaline Phosphatase 117 U/L (38-126) 02/03/25 09:36
Impression/Plan
-
Gen: NAD, AAOx3.
Eyes: EOMI, PERRLA, no scleral icterus.
Neck: supple.
CV: tachy, +S1/S2, no m/r/g.
Resp: CTAB, no rales, wheezes, or rhonchi.
Abd: +BS, soft, NT, ND
Skin: L medial thigh with 12cm area of warmth, edema, induration, and TTP c/w abscess. In the middle of the region is a gauze dressing with scant bleeding
Neuro: CN 2-12 intact, non-focal.
Psych: Normal mood and affect.
Sepsis due to L thigh abscess:
-clearly new dx of DM2 which contributed to abscess formation
-IV Vanco/Zosyn
-check CT LLE
-c/s surgery and ID
-1L NS ordered in the ER, will give additional IVFs (total IVFs for ABW is 3750cc) to complete 30cc/kg ABW due to lactic acidosis, trend lactic acid
New Dx DM2:
-Lantus 15U and Novolog 12U now
-mod res SSI/accuchecks
-check a1c
-c/s diabetes [employer]
Graves disease:
-cont methimazole/BB
Tobacco abuse d/o:
-encourage smoking cessation
-will offer nicotine patch
Anxiety:
-pt visibly anxious, will give 0.5mg PO ativan
FULL/Lovenox
[2025-02-03] MEDS: ATIVAN 0.5 MG PO (11:34)
--- NOTE | 2025-02-03 11:45 | CON.ID ---
Consultation
-
Date/Time Consultation Requested: 02/03/25 11:39
Date/Time Consultation Performed: 02/03/29 11:45
Requesting Provider: Dr Zamora
Performing Provider: Dr Bermudez
Reason for Consultation: left thigh abscess
Chief Complaint / Past History
Chief Complaint
L thigh pain, swelling, and bleeding
History of Present Illness
Mr Rosa is a 44 year old male with Graves disease, class III obesity who presented here today for left thigh pain, swelling and spontaneous bleeding which began 3-4 days ago and has progressively worsened. No fevers but he has had chills. No
history of boils. No previous UTIs that he's aware of. No excoriations or trauma to the area that he can recall. He is on a beta panfilo he thinks for graves disease.
11/13/23 he was seen in the ER for left hip and groin pain after he slipped on his tile floor, CT pelvis without IV contrast: no acute osseous abnormality, no soft tissue contusion.
Since arrival here he has been afebrile, bp stable, wbc 12, hgb 17, plt 240, no L shift, na 131, glucose 484, a1c pending, tbili 1.2, ast 29, alt 68, ua no pyuria, negative leuk esterase, bhb negative, blood cultures x2 in progress, a CT of the left
lower extremity is ordered but not yet resulted, patient is currently on vancomycin and zosyn
Past History
Additional Past Medical History:
reactive airway disease
Past Surgical History: None
Allergy History:
No Known Allergies Allergy (Verified 02/03/25 09:28)
Medications Reviewed: Yes
Social History
Tobacco: Smoker
Alcohol: Occasional
Drug: Marijuana
Family History
Family History: Not Pertinent
Review of Systems
Vital Signs
Temp Pulse Resp BP
98.0 F 129 25 149/106
02/03/25 09:22 02/03/25 09:22 02/03/25 09:22 02/03/25 09:22
Physical Exam
Physical Exam
Constitutional: No Acute Distress
Cardiovascular: Regular Rate and S1/S2; Negative Murmur or Rub
Pulmonary: Clear and Symmetric; Negative Wheezes, Rales or Rhonchi
Gastrointestinal: Soft, Non Tender, Non Distended and Normal Bowel Sounds
Skin: Warm, Dry and Rash (24 x 16 cm area of erythem with central induration, there is spontanous serosanguinous spontaneous expression of fluid); Negative Jaundice
Neurological: Awake
Lab / Diagnostic Study Results
02/03/25 09:36
02/03/25 09:36
Abs Immat Gran (auto) 0.1 10^3/uL (0-0.05) H 02/03/25 09:36
Absolute Neuts (auto) 8.7 10^3/uL (1.4-6.5) H 02/03/25 09:36
Absolute Lymphs (auto) 2.3 10^3/uL (1.2-3.4) 02/03/25 09:36
Absolute Monos (auto) 1.0 10^3/uL (0.1-0.6) H 02/03/25 09:36
Absolute Basos (auto) 0.1 10^3/uL (0-0.2) 02/03/25 09:36
Immature Gran % 0.6 % (0-0.5) H 02/03/25 09:36
Neutrophils % 70.1 % (42.2-75.2) 02/03/25 09:36
Lymphocytes % 18.4 % (20.5-51.1) L 02/03/25 09:36
Monocytes % 7.8 % (1.7-9.3) 02/03/25 09:36
Eosinophils % 2.7 % (0-6) 02/03/25 09:36
Basophils % 0.4 % (0-2) 02/03/25 09:36
Lactic Acid 3.5 mmol/L (0.7-2.0) H 02/03/25 09:36
Microbiology Results
Micro:
02/03/25 11:05 Blood Culture - Pending
Blood/Venous
02/03/25 11:05 Blood Culture - Pending
Blood/Venous
Assessment / Plan
Suspected Proximal Thigh phlegmon/abscess
Class III obesity
DM2
- blood cultures x2
- mrsa screen
- ua no pyuria, moderate bacteria
- follow up CT of the lower extremity
- follow up a1c
- continue vancomycin and zosyn pending further data
[2025-02-03 11:46] LABS: Urine Character Clear (Clear)
[2025-02-03 12:01] LABS: Urine Red Blood Cell None Seen /HPF (0-2); Urine Squamous Cell 0-2 /LPF (Few)
[2025-02-03] MEDS: VANCOCIN 540 MG IV (12:09)
[2025-02-03] MEDS: LR 2750 IV (12:10)
[2025-02-03] MEDS: NOVOLOG vial 12 UNITS SC (12:11)
[2025-02-03 12:15] LABS: Glucose - Point of Care 391 mg/dl (70-99)
--- NOTE | 2025-02-03 12:29 | CM ---
Chart reviewed and spoke with patient at ED bedside
Pt lives in [address] [place]
Independent with ADLs
Drives
DME cane
Local family parents and brother
PCP Has one in [place] but cannot remember the name of the doctor
RX yes
Pharmacy [facility] in [place]
no hx VN nor SNF
DCP is to go home no needs
Family an drive him home
CM will continue to follow up for any dcp needs
[2025-02-03] MEDS: LANTUS 0.15 UNITS SC (13:14)
[2025-02-03 13:24] LABS: Glucose - Point of Care 288 mg/dl (70-99)
--- NOTE | 2025-02-03 13:49 | PHA.VAN.IN ---
Assessment
- Assessment
Renal Function: Appears similar to baseline
Concomitant Antimicrobials: piperacillin/tazobactam
AUC Dosing Plan
- Dosing Variables
Dosing Weight (kg): 197
Dosing CrCl (ml/min): 125
Vd coefficient (L/kg): 0.4
- Empiric Dosing
Initial / Loading Dose: 2000mg - 02/03 12:09
Maintenance Regimen: Vanc 1250mg Q8H starting at 2200
Estimated AUC (mcg*h/mL): 476
Estimated Peak (mcg*h/mL): 27.4
Estimated Trough (mcg/ml): 13.6
Estimated Half Life (H): 6.4
patient may eventually require Q12H dosing but also may be slow to reach equilibrium given weight > 100kg
- Monitoring
No levels ordered at this time: consider levels in next few days
Pharmacokinetics Vancomycin I
- -
Patient Age: 44
Patient Sex: Male
Vancomycin Day #: 1
Indication: Skin And Soft Tissue
Requesting Provider: Dr. Zamora / Aidan
Pertinent Antimicrobial Allergies:
NKDA
Height / Weight:
Height 6 ft
Actual Weight 196.5 kg
Pertinent Past Medical History: BMI ~59
- Vital Signs / Lab Results
Temp Pulse Resp BP
98.0 F 116 17 130/104
02/03/25 09:22 02/03/25 13:30 02/03/25 13:30 02/03/25 11:21
Lab Results - Hematology
02/03/25
09:36
WBC 12.4 H
Lab Results - Chemistry
02/03/25
09:36
BUN 13
Creatinine 0.9
Albumin 4.7
02/03/25
09:36
Lactic Acid 3.5 H
Lab Results - Urine
02/03/25
11:16
Urine Nitrite (Reflex) Negative
Leukocyte Esterase Rfl Negative
Urine WBC (Reflex) 3-5
Ur Squamous Epith Cells 0-2
Urine Bacteria (Reflex) Moderate A
--- NOTE | 2025-02-03 14:17 | CON.GS ---
Addendum entered and electronically signed by Saleem Kumar MD 02/04/25 12:17:
Delayed entry from 02/03/25
I saw and examined the patient.
The Printing Assistant's note was reviewed and I agree with the note.
Comment: Reports spontaneous drainage of abscess en route to hospital. CT negative for collection, area of induration, erythema and tenderness to medial proximal LLE. Cont IV abx.
Original Note:
Consultation
-
Date/Time Consultation Performed: 02/03/25 1102
Requesting Provider: Jian
Medical History
-
Chief Complaint: pain to left thigh
History of Present Illness:
Mr Rosa is a 44 yo male with a h/o Grave's disease and morbid obesity who presented through the ED with ongoing pain and drainage from this left thigh. He notes that about 4 days ago, he noted some discomfort to his medial left thigh as his
thighs were rubbing together with walking and noted that the area was red. The next day, he noted edema to the area about the size of a 'baseball'. He began having increasing pain causing him to present to urgent care yesterday for evaluation. He
noted that on his way, he felt the area began to drain a significant amount with bloody drainage noted upon cleaning the area. He has noted some intermittent drainage of similar bloody fluid since that time. Last night, he was cold and shivering but
is not sure if he had fevers or chills. He notes loss of appetite as well. He denies recent trauma or injury. He has not noted a boil or a blister to the area.
Past Medical History
Past Medical History: Hyperthyroidism (Graves) and Other (Morbid obesity)
Past Surgical History: Orthopedic (right acl repair as a 12year old)
Social History
Tobacco: Smoker
Alcohol: Occasional
Drug: Marijuana
Family History
Family History: Reviewed & Not Pertinent
Allergies / Home Medications
Allergy/AdvReac Type Severity Reaction Status Date / Time
No Known Allergies Allergy Verified 02/03/25 09:28
�Medication �Instructions �Recorded �Confirmed �Type
Medical Marijuana 1 inh inhalation HS Pain 02/03/25 02/03/25 History
methimazole 5 mg tablet 7.5 mg PO QPM Thyroid 02/03/25 02/03/25 History
metoprolol succinate 25 mg 25 mg PO QPM Blood Pressure 02/03/25 02/03/25 History
tablet,extended release 24 hr
Review of Systems
-
History Source: Patient
All other systems: Negative unless noted
A 10 point review of systems was completed, and was negative except as per HPI.
Physical Exam
Vital Signs
Temp Pulse Resp BP
98.0 F 116 17 130/104
02/03/25 09:22 02/03/25 13:30 02/03/25 13:30 02/03/25 11:21
02/02/25 02/03/25 02/04/25
06:59 06:59 06:59
Actual Weight 196.5 kg
Lab Results
02/03/25 09:36
02/03/25 09:36
WBC 12.4 10^3/uL (4.8-10.8) H 02/03/25 09:36
Hgb 17.1 g/dL (13.0-18.0) 02/03/25 09:36
Hct 47.5 % (39.0-52.0) 02/03/25 09:36
Plt Count 240 10^3/uL (130-400) 02/03/25 09:36
Abs Immat Gran (auto) 0.1 10^3/uL (0-0.05) H 02/03/25 09:36
Neutrophils % 70.1 % (42.2-75.2) 02/03/25 09:36
Physical Exam
General: No Apparent Distress
HEENT: Normocephalic and Moist Mucous Membranes
Respiratory: Non Labored Respirations
GI: Soft, Non Tender and Obese
Skin: Other (left medial thigh with erythema. small open area with dried bloody drainage to site)
Neuro: Awake and Alert
Psych: Calm
Data Reviewed
-
CT Scan: Image Personally Visualized and interpreted, Report Reviewed by me, Discussed with Physician, Discussed with Nurse and Discussed with Patient
Labs: Labs Reviewed by me, Discussed with Physician, Discussed with Nurse and Discussed with Patient
Old Records: Reviewed
Assessment / Plan
-
44 yo male presenting with cellulitis to the left thigh with area of drainage at the medial thigh in the setting of new dx/untreated DM. Erythema marked. CT imaging reviewed without evidence of drainable abscess although inflammatory changes/edema
present. Blood and wound Cx pending. Mild leukocytosis present, no anemia noted. Labs consistent with hemoconcentration.
Plan:
No surgical intervention at this time, will recheck wound tomorrow after 24 of IV abx to reevaluate
ID following for ABX management
Diabetic management as per primary team
C/W Local wound care
[2025-02-03 14:19] LABS: Glycohemoglobin (HgbA1c) 9.5 % (4.0-5.9)
[2025-02-03 14:22] LABS: Glucose - Point of Care 249 mg/dl (70-99)
--- NOTE | 2025-02-03 16:00 | PTCARENOTE ---
Received patient from ED. Patient ambulated to bathroom with assistance x1. Patient AAOX3, reports pain at left thigh abscess site. Redressed abscess due to drainage. Cleansed with saline and applied silicone dressing. Bloody drainage noted on
old dressing. IV fluids and antibiotics infusing as ordered. VS stable. SR on monitor HR 90's. Oriented patient to room. Call judd in reach.
[2025-02-03] MEDS: TOPROL XL 25 MG PO (16:56)
[2025-02-03] MEDS: TAPAZOLE 7.5 MG PO (16:56)
[2025-02-03] MEDS: NOVOLOG FLEXPEN-MODERATE RESISTANCE 3 UNITS SC (17:02)
[2025-02-03] MEDS: NOVOLOG FLEXPEN 6 UNITS SC (17:02)
[2025-02-03] MEDS: LOVENOX 40 MG SC (17:03)
[2025-02-03 17:07] LABS: Glucose - Point of Care 214 mg/dl (70-99)
[2025-02-03] MEDS: LR 1000 IV (18:19)
[2025-02-03] MEDS: TAPAZOLE PO (19:23)
[2025-02-03] MEDS: TOPROL XL PO (19:23)
[2025-02-03] MEDS: VANCOCIN 275 MG IV (21:10)
[2025-02-03 21:40] LABS: Glucose - Point of Care 309 mg/dl (70-99)
[2025-02-04] VITALS (9 sets, daily range): BP systolic 117–168; BP diastolic 84–108
[2025-02-04] MEDS: ZOSYN 100 IV ×4 (05:01→22:57)
[2025-02-04] MEDS: LR 1000 IV (05:02)
[2025-02-04 05:20] LABS: Hematocrit 42.7 % (39.0-52.0); Hemoglobin 15.3 g/dL (13.0-18.0); Mean Corp Hgb Conc. 35.8 g/dL (33.0-37.0); Mean Corpuscular Volume 87.7 fL (80.0-94.0); Platelet Count 205 10^3/uL (130-400); Red Cell Dist. Width 12.0 % (11.5-14.5)
[2025-02-04 05:46] LABS: Blood Urea Nitrogen 9 mg/dl (9-20); Calcium 8.9 mg/dl (8.4-10.2); Carbon Dioxide 25 mmol/L (22-30); Chloride 103 mmol/L (98-107); Estimated Creatinine Clearance > 125 ml/min; Glucose 245 mg/dl (70-99); Potassium 4.2 mmol/L (3.5-5.1); Sodium 133 mmol/L (135-145); eGFR > 60.00
[2025-02-04] MEDS: VANCOCIN 275 MG IV ×3 (06:26→21:17)
--- NOTE | 2025-02-04 07:39 | PHA.VAN.FU ---
Vancomycin Assessment / Plan
- Assessment
Renal Function: Stable
WBC's are: Trending Down
In the past 24 hrs, patient has been: Afebrile
Concomitant Antimicrobials: ZOSYN
- Dosing Plan
Continue: 1250MG Q8H
- Monitoring Plan
No level(s) ordered at this time: CONSIDER THURSDAY EVENING IF KIDNEY FX STAYS
- Follow Up
Pharmacy will continue to follow.
Vancomycin Follow UP
- -
Patient Age: 44
Patient Sex: Male
Vancomycin Day #: 2
Indication: Skin And Soft Tissue
Requesting Provider: Dr. Zamora / Aidan
Pertinent Antimicrobial Allergies:
NKDA
Height / Weight:
Height 6 ft
Actual Weight 195.8 kg
Pertinent Past Medical History: BMI ~59
- Vital Signs / Lab Results
Temp Pulse Resp BP Pulse Ox
97.7 F 88 19 155/108 95
02/04/25 02:55 02/04/25 06:15 02/04/25 06:15 02/04/25 06:00 02/04/25 06:15
Lab Results - Hematology
02/03/25 02/04/25
09:36 05:07
WBC 12.4 H 8.2
Lab Results - Chemistry
02/03/25 02/04/25
09:36 05:07
BUN 13 9
Creatinine 0.9 0.8
Estimated Creat Clear > 125
Albumin 4.7
02/03/25 02/03/25 02/03/25
09:36 14:16 17:33
Lactic Acid 3.5 H 1.7 Cancelled
02/03/25 02/04/25
21:33 01:33
Lactic Acid Cancelled Cancelled
Lab Results - Urine
02/03/25
11:16
Urine Nitrite (Reflex) Negative
Leukocyte Esterase Rfl Negative
Ur Squamous Epith Cells 0-2
Microbiology Results
02/03/25 12:25 Gram Stain - Preliminary
Abscess
[2025-02-04] MEDS: NOVOLOG FLEXPEN-MODERATE RESISTANCE 5 UNITS SC (07:56)
[2025-02-04] MEDS: NOVOLOG FLEXPEN 6 UNITS SC ×3 (07:56→17:51)
[2025-02-04 07:57] LABS: Glucose - Point of Care 263 mg/dl (70-99)
[2025-02-04] MEDS: LANTUS 0.2 UNITS SC (07:57)
--- NOTE | 2025-02-04 08:02 | W.PN.HOSP.TC ---
Today's Communication/Plan
-
see plan
Assessment / Plan
Assessment / Plan
Gen: NAD, AAOx3.
Eyes: EOMI, PERRLA, no scleral icterus.
Neck: supple.
CV: RRR, +S1/S2, no m/r/g.
Resp: remains CTAB, no rales, wheezes, or rhonchi.
Abd: +BS, soft, NT, ND
Skin: L medial thigh with large area of warmth, edema, induration, and TTP. In the middle of the region are gauze dressings with evidence of bleeding.
Neuro: CN 2-12 intact, non-focal.
Psych: Normal mood and affect.
02/03/25 12:25 Abscess Gram Stain - Preliminary
CT LLE: Edematous changes with overlying skin thickening of the superficial fatty soft tissues of the proximal medial left thigh. No CT findings to confirm accompanying well-formed abnormal focal fluid collection such as an abscess.
Sepsis due to L thigh cellulitis:
-clearly new dx of DM2 which contributed to cellulitis
-s/p 30cc/kg ABW IVFs on admission followed by maintenance IVFs, stop IVFs
-CT LLE without abscess formation
-cont IV Vanco/Zosyn as per ID
-follow BCxs/WCx
-surgery following, discussed with surgery
-leukocytosis and lactic acidosis have resolved
New Dx DM2:
-a1c 9.5%
-Lantus 20U and premeal Novolog 6U
-mod res SSI/accuchecks
-diabetes PHARMACY CLINICAL COORDINATOR c/s placed 02/03
Graves disease:
-cont methimazole/BB
Tobacco abuse d/o:
-encourage smoking cessation
-will offer nicotine patch
Morbid obesity due to excess calories:
-Encourage weight loss
-Affects all aspects of care
FULL/Lovenox
Anticipated Discharge: 24 - 48 hours
Subjective/Interval History
-
Date of Service: February 04, 2025
No new complaints.
Objective Data
-
Labs:
Laboratory Results
02/04/25
05:07
WBC 8.2
Hgb 15.3
Hct 42.7
Plt Count 205
Sodium 133 L
Potassium 4.2
Chloride 103
Carbon Dioxide 25
BUN 9
Creatinine 0.8
Glucose 245 H
Calcium 8.9
Vital Signs:
Vital Signs
Temp Pulse Resp BP Pulse Ox
97.7 F 88 19 155/108 95
02/04/25 02:55 02/04/25 06:15 02/04/25 06:15 02/04/25 06:00 02/04/25 06:15
I&O
02/03/25 02/04/25 02/05/25
06:59 06:59 06:59
Intake Total 2074
Balance 2074
--- NOTE | 2025-02-04 09:11 | W.PN.ID1 ---
Date of Service
Date of Service: February 04, 2025
Today's Communication
Continue antibiotics
Assessment / Plan
Proximal left medial thigh phlegmon/abscess
Class III obesity
DM2
Recommendations:
- blood cultures x2 pending
- mrsa screen - pending
- Wound culture with gram-negative rods. Identification and susceptibility pending.
- Leukocytosis improved; continue to trend.
- continue vancomycin and zosyn pending further data
Chief Complaint
-: Other (Left medial thigh phlegmon/abscess)
Subjective / Review of Systems
Patient seen and examined. Reports ongoing left medial thigh discomfort.
Review of Systems: No Fever
Vital Signs / Physical Exam
Vital Signs
Vital Signs
Temp Pulse Resp BP Pulse Ox
97.7 F 89 18 168/108 95
02/04/25 07:00 02/04/25 08:00 02/04/25 08:00 02/04/25 08:00 02/04/25 07:45
Physical Exam
Constitutional: No Acute Distress, Comfortable, Non-toxic and Obese
Cardiovascular: S1/S2; Negative S3/S4
Pulmonary: Non Labored
Gastrointestinal: Soft, Non Tender and Normal Bowel Sounds
Skin: Other (Left medial thigh swelling/induration with central area of drainage. Area exquisitely tender to touch.)
Neurological: Awake and Alert
Psychological: Calm
Objective Data
Lab Data
Lab Results
02/04/25 05:07
02/04/25 05:07
Estimated Creat Clear > 125 ml/min 02/04/25 05:07
Lactic Acid Cancelled 02/04/25 01:33
Total Bilirubin 1.2 mg/dl (0.2-1.3) 02/03/25 09:36
AST 29 U/L (17-59) 02/03/25 09:36
ALT 68 U/L (0-50) H 02/03/25 09:36
Alkaline Phosphatase 117 U/L (38-126) 02/03/25 09:36
Most recent labs reviewed.
Micro Results:
02/03/25 12:25 Wound Culture - Pending
Abscess Gram Stain - Preliminary
02/03/25 14:13 MRSA Screen - Pending
Nose
02/03/25 11:16 Urine Culture - Pending
Urine
02/03/25 11:05 Blood Culture - Pending
Blood/Venous
02/03/25 11:05 Blood Culture - Pending
Blood/Venous
[2025-02-04] MEDS: TYLENOL 1000 MG PO ×2 (09:20→17:49)
[2025-02-04] MEDS: DILAUDID 1 MG IV (09:20)
--- NOTE | 2025-02-04 10:31 | W.PN.GS2 ---
Addendum entered and electronically signed by Saleem Kumar MD 02/04/25 12:18:
I saw and examined the patient.
The Dry Cell Sealer's note was reviewed and I agree with the note.
Comment: Bedside I&D performed
Prep: EtOH
Anes: lidocaine 1% with epi
Full thickness elliptical incision made with #11 blade, scant bloody drainage, no pus, Cx obtained, irrigated and probed for loculations, packed with dry sterile 4x4
Wound care: daily packing changes
Cont IV abx
DM mgmt per Hospitalist
Pls call with ?s
Original Note:
Today's Communication / Plan
-
ABX
Local wound care
Assessment / Plan
-
44 yo male presenting with left thigh cellulitis with medial thigh abscess
AFVSS
No leukocytosis
New dx DM: sugars improved from arrival
Site with drainage and fluctuance, I&D at bedside, see separate procedure note from MD. No elvin pus with procedure.
Plan:
Repeat cx sent with I&D
Wound packed with I&D, plan to remove packing tomorrow
Analgesics prn; tylenol, ibuprofen, oxycodone
C/W ABX
Medical/diabetic management as per primary team
Subjective Data
-
Date of Service: February 04, 2025
Pt seen and examined at bedside with Dr. Kumar. Pain about the same to the LLE. Denies fevers.
Objective Data
-
Intake and Output
02/03/25 02/04/25 02/05/25
06:59 06:59 06:59
Intake Total 2074
Balance 2074
Intake:
Oral fluids 700 / 700
IV fluids (Total) 1000 / 1000
IV piggybacks 375 / 375
Other:
Number of approximated LARGE 1
amounts of urine
Vital Signs
Temp Pulse Resp BP Pulse Ox
97.7 F 89 18 168/108 95
02/04/25 07:00 02/04/25 08:00 02/04/25 08:00 02/04/25 08:00 02/04/25 07:45
Lab Results
02/04/25 05:07
02/04/25 05:07
Calcium 8.9 mg/dl (8.4-10.2) 02/04/25 05:07
Total Bilirubin 1.2 mg/dl (0.2-1.3) 02/03/25 09:36
AST 29 U/L (17-59) 02/03/25 09:36
ALT 68 U/L (0-50) H 02/03/25 09:36
Alkaline Phosphatase 117 U/L (38-126) 02/03/25 09:36
Total Protein 7.8 g/dl (6.3-8.2) 02/03/25 09:36
Albumin 4.7 g/dl (3.5-5.0) 02/03/25 09:36
Physical Exam
-
NAD
Left thigh with erythema, slightly decreased from prior. Area of fluctuation/induration in center of erythematous area which is draining thick bloody fluid.
--- NOTE | 2025-02-04 11:27 | PTCARENOTE ---
Pt received in bed @ 0700. AAOx3. Wound care provided at bedside to LLE by general surgery. Dilaudid 1mg IV x1 now administered for pain with wound care. PRN Tylenol, Ibuprofen, and Roxicodone added. New order to downgraded to med/surg.
[2025-02-04] MEDS: MOTRIN 600 MG PO (11:41)
[2025-02-04 11:54] LABS: Glucose - Point of Care 241 mg/dl (70-99)
[2025-02-04] MEDS: NOVOLOG FLEXPEN-MODERATE RESISTANCE 3 UNITS SC ×2 (12:27→17:51)
[2025-02-04 17:36] LABS: Glucose - Point of Care 238 mg/dl (70-99)
[2025-02-04] MEDS: LOVENOX 40 MG SC (17:50)
[2025-02-04] MEDS: TAPAZOLE 7.5 MG PO (17:50)
[2025-02-04] MEDS: TOPROL XL 25 MG PO (17:53)
[2025-02-04] MEDS: LR IV (19:19)
[2025-02-04] MEDS: ROXICODONE 5 MG PO ×2 (19:49→23:48)
[2025-02-04 21:36] LABS: Glucose - Point of Care 238 mg/dl (70-99)
[2025-02-05] MEDS: ZOSYN 100 IV ×4 (04:25→22:12)
[2025-02-05 04:33] LABS: Hematocrit 39.1 % (39.0-52.0); Hemoglobin 13.9 g/dL (13.0-18.0); Mean Corp Hgb Conc. 35.5 g/dL (33.0-37.0); Mean Corpuscular Volume 87.3 fL (80.0-94.0); Platelet Count 193 10^3/uL (130-400); Red Cell Dist. Width 12.0 % (11.5-14.5)
[2025-02-05 05:03] LABS: Blood Urea Nitrogen 8 mg/dl (9-20); Calcium 8.5 mg/dl (8.4-10.2); Carbon Dioxide 29 mmol/L (22-30); Chloride 104 mmol/L (98-107); Estimated Creatinine Clearance > 125 ml/min; Glucose 219 mg/dl (70-99); Potassium 4.5 mmol/L (3.5-5.1); Sodium 134 mmol/L (135-145); eGFR > 60.00
[2025-02-05] MEDS: VANCOCIN 275 MG IV (05:14)
[2025-02-05] MEDS: NOVOLOG FLEXPEN 6 UNITS SC (07:49)
[2025-02-05] MEDS: NOVOLOG FLEXPEN-MODERATE RESISTANCE 3 UNITS SC (07:49)
[2025-02-05] MEDS: LANTUS 0.28 UNITS SC (07:53)
--- NOTE | 2025-02-05 07:53 | PHA.VAN.FU ---
Vancomycin Assessment / Plan
- Assessment
Renal Function: Stable
WBC's are: WNL
In the past 24 hrs, patient has been: Afebrile
Concomitant Antimicrobials: ZOSYN
- Dosing Plan
Continue: 1250MG Q8H
- Monitoring Plan
Peak Level: 02/06@0130
Trough Level: 02/06@0530
- Follow Up
Pharmacy will continue to follow.
Vancomycin Follow UP
- -
Patient Age: 44
Patient Sex: Male
Vancomycin Day #: 3
Indication: Skin And Soft Tissue
Requesting Provider: Dr. Zamora / Aidan
Pertinent Antimicrobial Allergies:
NKDA
Height / Weight:
Height 6 ft
Actual Weight 195.8 kg
Pertinent Past Medical History: BMI ~59
- Vital Signs / Lab Results
Temp Pulse Resp BP Pulse Ox
97.2 F 94 20 151/94 96
02/04/25 23:09 02/04/25 23:09 02/04/25 23:09 02/04/25 23:04 02/04/25 23:09
Lab Results - Hematology
02/03/25 02/04/25 02/05/25
09:36 05:07 04:21
WBC 12.4 H 8.2 5.9
Lab Results - Chemistry
02/03/25 02/04/25 02/05/25
09:36 05:07 04:21
BUN 13 9 8 L
Creatinine 0.9 0.8 0.8
Estimated Creat Clear > 125 > 125
Albumin 4.7
02/03/25 02/03/25 02/03/25
09:36 14:16 17:33
Lactic Acid 3.5 H 1.7 Cancelled
02/03/25 02/04/25
21:33 01:33
Lactic Acid Cancelled Cancelled
Microbiology Results
02/04/25 10:25 Gram Stain - Preliminary
Leg - Left
02/03/25 14:13 MRSA Screen - Final
Nose No Methicillin Resistant Staphylococcus aureus isolated.
02/03/25 11:05 Blood Culture - Preliminary
Blood/Venous No Growth in 24 hours- Final report to follow
02/03/25 11:05 Blood Culture - Preliminary
Blood/Venous No Growth in 24 hours- Final report to follow
02/03/25 11:16 Urine Culture - Preliminary
Urine Staphylococcus species
02/03/25 12:25 Wound Culture - Preliminary
Abscess No growth
Gram Stain - Preliminary
[2025-02-05 07:58] LABS: Glucose - Point of Care 225 mg/dl (70-99)
--- NOTE | 2025-02-05 08:23 | W.PN.ID1 ---
Date of Service
Date of Service: February 05, 2025
Today's Communication
Continue Zosyn. Discontinue further vancomycin. Continue with local care. Follow cultures.
Assessment / Plan
Proximal left medial thigh phlegmon/abscess
Class III obesity
DM2
Recommendations:
- Leukocytosis resolved.
- Blood cultures NGTD
- MRSA screen negative
- Wound culture (02/03/2025) with gram-negative rods; culture without growth.
- Wound culture (02/04/2025) with gram-positive rods; culture pending.
- Continue Zosyn. Discontinue further vancomycin as no MRSA recovered.
- Continue local care to the wound area.
����������������������������������������������������������
Chief Complaint
-: Other (Left medial thigh phlegmon/abscess)
Subjective / Review of Systems
Patient seen and examined. Reports ongoing, but slightly improved pain/discomfort in the left medial upper thigh. No fevers or chills.
Vital Signs / Physical Exam
Vital Signs
Vital Signs
Temp Pulse Resp BP Pulse Ox
97.2 F 94 20 151/94 96
02/04/25 23:09 02/04/25 23:09 02/04/25 23:09 02/04/25 23:04 02/04/25 23:09
Physical Exam
Constitutional: No Acute Distress, Comfortable, Non-toxic and Obese
Eyes: Sclera Anicteric
Cardiovascular: S1/S2; Negative S3/S4
Pulmonary: Non Labored
Gastrointestinal: Soft, Non Tender and Normal Bowel Sounds
Skin: Other (Left medial thigh swelling/induration with central area of drainage. Area exquisitely tender to touch, although decreased from yesterday exam)
Neurological: Awake and Alert
Psychological: Calm
Objective Data
Lab Data
Lab Results
02/05/25 04:21
02/05/25 04:21
Estimated Creat Clear > 125 ml/min 02/05/25 04:21
Lactic Acid Cancelled 02/04/25 01:33
Total Bilirubin 1.2 mg/dl (0.2-1.3) 02/03/25 09:36
AST 29 U/L (17-59) 02/03/25 09:36
ALT 68 U/L (0-50) H 02/03/25 09:36
Alkaline Phosphatase 117 U/L (38-126) 02/03/25 09:36
Most recent labs reviewed.
Micro Results:
02/04/25 10:25 Wound Culture - Pending
Leg - Left Gram Stain - Preliminary
02/03/25 14:13 MRSA Screen - Final
Nose No Methicillin Resistant Staphylococcus aureus isolated.
02/03/25 11:05 Blood Culture - Preliminary
Blood/Venous No Growth in 24 hours- Final report to follow
02/03/25 11:05 Blood Culture - Preliminary
Blood/Venous No Growth in 24 hours- Final report to follow
02/03/25 11:16 Urine Culture - Preliminary
Urine Staphylococcus species
02/03/25 12:25 Wound Culture - Preliminary
Abscess No growth
Gram Stain - Preliminary
--- NOTE | 2025-02-05 09:13 | W.PN.HOSP.TC ---
Today's Communication/Plan
-
see plan
Assessment / Plan
Assessment / Plan
Gen: NAD, AAOx3.
Eyes: EOMI, PERRLA, no scleral icterus.
Neck: supple.
CV: remains RRR, +S1/S2, no m/r/g.
Resp: CTAB anteriorly, no rales, wheezes, or rhonchi.
Abd: +BS, soft, NT, ND
Skin: L medial thigh with large area of warmth, edema, induration (all improved from yesterday), and TTP with central opening from I&D.
Neuro: CN 2-12 intact, non-focal.
Psych: Normal mood and affect.
02/03/25 12:25 Abscess Wound Culture - Preliminary
No growth
02/03/25 12:25 Abscess Gram Stain - Preliminary
02/04/25 10:25 Leg - Left Gram Stain - Preliminary
02/03/25 14:13 Nose MRSA Screen - Final
No Methicillin Resistant Staphylococcus aureus isolated.
02/03/25 11:05 Blood/Venous Blood Culture - Preliminary
No Growth in 24 hours- Final report to follow
02/03/25 11:05 Blood/Venous Blood Culture - Preliminary
No Growth in 24 hours- Final report to follow
02/03/25 11:16 Urine Urine Culture - Preliminary
Staphylococcus species
CT LLE: Edematous changes with overlying skin thickening of the superficial fatty soft tissues of the proximal medial left thigh. No CT findings to confirm accompanying well-formed abnormal focal fluid collection such as an abscess.
Sepsis due to L thigh cellulitis:
-clearly new dx of DM2 which contributed to cellulitis
-s/p 30cc/kg ABW IVFs on admission followed by maintenance IVFs, stop IVFs
-CT LLE without abscess formation
-I&D performed at bedside 02/05
-cont Zosyn as per ID (was on Vanco, now off)
-follow BCxs/WCx
-surgery following
-leukocytosis and lactic acidosis have resolved
New Dx DM2:
-a1c 9.5%
-Lantus 32U and premeal Novolog 10U
-mod res SSI/accuchecks
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
Graves disease:
-cont methimazole/BB
Tobacco abuse d/o:
-encourage smoking cessation
-will offer nicotine patch
Morbid obesity due to excess calories:
-Encourage weight loss
-Affects all aspects of care
FULL/Lovenox
Anticipated Discharge: 24 - 48 hours
Subjective/Interval History
-
Date of Service: February 05, 2025
No new complaints.
Objective Data
-
Labs:
Laboratory Results
02/05/25
04:21
WBC 5.9
Hgb 13.9
Hct 39.1
Plt Count 193
Sodium 134 L
Potassium 4.5
Chloride 104
Carbon Dioxide 29
BUN 8 L
Creatinine 0.8
Glucose 219 H
Calcium 8.5
Vital Signs:
Vital Signs
Temp Pulse Resp BP Pulse Ox
97.2 F 94 20 151/94 96
02/04/25 23:09 02/04/25 23:09 02/04/25 23:09 02/04/25 23:04 02/04/25 23:09
I&O
02/04/25 02/05/25 02/06/25
06:59 06:59 06:59
Intake Total 2074
Balance 2074
[2025-02-05 09:39] VITALS: BP 149/91
[2025-02-05 11:59] LABS: Glucose - Point of Care 178 mg/dl (70-99)
[2025-02-05] MEDS: NOVOLOG FLEXPEN-MODERATE RESISTANCE 1 UNITS SC ×2 (12:53→17:11)
[2025-02-05] MEDS: NOVOLOG FLEXPEN 10 UNITS SC ×2 (12:53→17:12)
[2025-02-05 14:55] VITALS: BP 124/76
[2025-02-05 15:00] VITALS: BP 124/76
[2025-02-05 16:48] VITALS: BP 125/87
[2025-02-05] MEDS: ROXICODONE 5 MG PO (17:08)
[2025-02-05] MEDS: TOPROL XL 25 MG PO (17:08)
[2025-02-05] MEDS: LOVENOX 40 MG SC (17:12)
[2025-02-05] MEDS: TAPAZOLE 7.5 MG PO (17:20)
[2025-02-05 17:26] LABS: Glucose - Point of Care 174 mg/dl (70-99)
[2025-02-05 22:19] LABS: Glucose - Point of Care 216 mg/dl (70-99)
[2025-02-05] MEDS: TYLENOL 1000 MG PO (22:22)
[2025-02-05 23:32] VITALS: BP 132/67
[2025-02-06] MEDS: ZOSYN 100 IV ×2 (05:15→11:54)
[2025-02-06 07:45] LABS: Glucose - Point of Care 194 mg/dl (70-99)
[2025-02-06 07:47] VITALS: BP 146/96
--- NOTE | 2025-02-06 08:07 | PN.DE.MGMTRT ---
Insulin Management
- -
02/06/2025: Diabetes Management Consult
44 year old male who presented with Left thigh pain, swelling, and bleeding. Patient reports that symptoms began 3 to 4 days prior to presentation to the ED.
PMH: Graves disease, morbid Obesity. Was noted for elevated blood glucose of 485 on admission and was started on basal bolus insulin therapy.
A1C 9.5%, Cr 0.6, eGFR >60
Patient awake, alert, oriented, resting in bed, offers no complaints, able to discuss diabetes care plan.
States he routinely sees Endo Dr. Bloom for graves disease and was not aware of any pre-diabetes or Diabetes Dx.
Glucose has remained elevated since admission. 02/05 premeal range was 174 to 225, Will start Metformin 500 mg BID. Cont premeal NovoLog 10 units and low corrective with meals. FBG 194 POC, Dr. Zamora increased AM Lantus dose to 32 units. Will cont
same dose.
Discussed with Nurse. Will cont to follow.
Pt will be seen by Diabetes Nurse Educator for glucose monitor and insulin instructions today.
Diabetes History
- -
Type of Diabetes: 2 requiring insulin
Pre-Admission Diabetes Regimen
Lab Results
Hemoglobin A1c 9.5 % (4.0-5.9) H 02/03/25 09:36
Insulin Pump Settings
IP Diabetes Regimen
02/05/25 02/05/25 02/05/25
11:49 17:08 22:18
POC Glucose 178 H 174 H 216 H
02/06/25
07:44
POC Glucose 194 H
Meal type: Lunch
Meal type: Breakfast
Amount consumed: 100%
Amount consumed: 100%
Patient Education
[2025-02-06] MEDS: NOVOLOG FLEXPEN 10 UNITS SC ×3 (08:48→18:42)
[2025-02-06] MEDS: NOVOLOG FLEXPEN-MODERATE RESISTANCE 1 UNITS SC (08:48)
[2025-02-06 09:36] LABS: Hematocrit 47.6 % (39.0-52.0); Hemoglobin 17.0 g/dL (13.0-18.0); Mean Corp Hgb Conc. 35.7 g/dL (33.0-37.0); Mean Corpuscular Volume 87.2 fL (80.0-94.0); Platelet Count 299 10^3/uL (130-400); Red Cell Dist. Width 12.1 % (11.5-14.5)
--- NOTE | 2025-02-06 09:40 | WOUNDNOTE ---
JENNIFER RN NOTE: Confirmed with Omkar Olguin and Dr. Hummel can cancel wound consult.
[2025-02-06 09:43] LABS: Blood Urea Nitrogen 7 mg/dl (9-20); Calcium 9.6 mg/dl (8.4-10.2); Carbon Dioxide 20 mmol/L (22-30); Chloride 105 mmol/L (98-107); Estimated Creatinine Clearance > 125 ml/min; Glucose 226 mg/dl (70-99); Potassium 4.3 mmol/L (3.5-5.1); Sodium 136 mmol/L (135-145); eGFR > 60.00
[2025-02-06] MEDS: ROXICODONE 5 MG PO (10:06)
[2025-02-06] MEDS: LANTUS 0.32 UNITS SC (10:08)
[2025-02-06 11:48] LABS: Glucose - Point of Care 124 mg/dl (70-99)
[2025-02-06] MEDS: NOVOLOG FLEXPEN-MODERATE RESISTANCE SC ×2 (11:51→17:50)
--- NOTE | 2025-02-06 12:35 | W.PN.HOSP.TC ---
Today's Communication/Plan
-
Monitor vital signs see plan
Will need insulin teaching
Diabetes CARPET FLOOR LAYER APPRENTICE to see today
Continue with antibiotic
Assessment / Plan
Assessment / Plan
Gen: NAD, AAOx3.
Eyes: EOMI, PERRLA, no scleral icterus.
Neck: supple.
CV: remains RRR, +S1/S2, no m/r/g.
Resp: CTAB anteriorly, no rales, wheezes, or rhonchi.
Abd: +BS, soft, NT, ND
Skin: L medial thigh with large area of warmth, edema, and TTP with central opening from I&D.
Neuro: CN 2-12 intact, non-focal.
Psych: Normal mood and affect.
02/03/25 12:25 Abscess Wound Culture - Preliminary
No growth
02/03/25 12:25 Abscess Gram Stain - Preliminary
02/04/25 10:25 Leg - Left Gram Stain - Preliminary
02/03/25 14:13 Nose MRSA Screen - Final
No Methicillin Resistant Staphylococcus aureus isolated.
02/03/25 11:05 Blood/Venous Blood Culture - Preliminary
No Growth in 24 hours- Final report to follow
02/03/25 11:05 Blood/Venous Blood Culture - Preliminary
No Growth in 24 hours- Final report to follow
02/03/25 11:16 Urine Urine Culture - Preliminary
Staphylococcus species
CT LLE: Edematous changes with overlying skin thickening of the superficial fatty soft tissues of the proximal medial left thigh. No CT findings to confirm accompanying well-formed abnormal focal fluid collection such as an abscess.
Sepsis due to L thigh cellulitis:
- new dx of DM2 which contributed to cellulitis
-CT LLE without abscess formation
-I&D performed at bedside 02/05
-cont Zosyn as per ID (was on Vanco, now off)
-follow BCxs/WCx
-surgery following
-leukocytosis and lactic acidosis have resolved
New Dx DM2:
-a1c 9.5%
-Lantus 32U and premeal Novolog 10U
-mod res SSI/accuchecks
-diabetes CARPET FLOOR LAYER APPRENTICE c/s placed 02/03
Will need insulin teaching
Graves disease:
-cont methimazole/BB
Tobacco abuse d/o:
-encourage smoking cessation
-will offer nicotine patch
Morbid obesity due to excess calories:
-Encourage weight loss
-Affects all aspects of care
FULL/Lovenox
Anticipated Discharge: 24 - 48 hours
Subjective/Interval History
-
Date of Service: February 06, 2025
Denies nausea
Objective Data
-
Labs:
Laboratory Results
02/06/25
08:40
WBC 8.1
Hgb 17.0 D
Hct 47.6
Plt Count 299 D
Sodium 136
Potassium 4.3
Chloride 105
Carbon Dioxide 20 L
BUN 7 L
Creatinine 1.0
Glucose 226 H
Calcium 9.6
Vital Signs:
Vital Signs
Temp Pulse Resp BP Pulse Ox
97.7 F 116 20 146/96 96
02/06/25 07:47 02/06/25 07:47 02/06/25 07:47 02/06/25 07:47 02/06/25 09:00
I&O
02/05/25 02/06/25 02/07/25
06:59 06:59 06:59
Intake Total 1804
Balance 1804
--- NOTE | 2025-02-06 13:37 | PTCARENOTE ---
Addendum entered by Kaylene Slade RN 02/06/25 13:43:
02/06/2025 ADDENDUM
Patient also states he was experiencing frequent thirst and urination prior to admission. Does not eat breakfast or lunch at home, typically eats a very large dinner late evening and another meal afterward. He also states that he plans to adjust
his diet to eat 3 meals a day once home; Reviewed taking Novolog only when eating meals unless otherwise directed.
Original Note:
02/06/2025 DIABETES EDUCATION CONSULT
I met with patient to review diabetes management. He is inpatient with [facility], newly diagnosed with DM. His A1c is 9.5%, states he had elevated blood sugar in the past. He sees Dr. Reynolds as his PCP.
I educated on physiology of T2D, organ damage, managing with medications, monitoring BG, nutrition, activity, sleep and managing stress. I reinforced signs of hyperglycemia, hypoglycemia and hypoglycemia protocol; BS parameters and recommended HbA1c
goals, glucometer and CGM instructions, glucose tracker, medic alert bracelet and outpatient DSME program. Written material provided.
I provided patient with a [employer] glucometer sample kit. Provided verbal instructions on proper blood sugar testing technique, and demonstration with patient�s participation.
I educated and demonstrated on insulin injection technique, timing, and storage. Discussed long and short acting insulin; onset/peak/duration, and encouraged her to administer self injections with RN supervision while admitted; spoke to RN and
provided samples of insulin pen needles for patient use for self demonstration of insulin injection. Discussed normal target glucose ranges and a monitoring schedule 15 minutes before each meal when prescribed Novolog, and before bedtime or fasting
AM.
Encouraged patient to follow up with PCP for post d/c appointment and to monitor medication and blood glucose levels. Provided list of endocrinologists if desired, to contact insurance company to verify in network status. Requested a
prescription for blood sugar testing supplies to be sent to his pharmacy on record. Patient verbalized understanding.
--- NOTE | 2025-02-06 14:03 | W.PN.ID1 ---
Date of Service
Date of Service: February 06, 2025
Today's Communication
- Continue Zosyn for tonight
- tomorrow start linezolid 600 mg PO BID and augmentin 875/125 mg PO BID both for 7 more days
- selected linezolid due to tissue penetration with class III obesity
- follow up with PCP
Assessment / Plan
Proximal left medial thigh phlegmon/abscess
Class III obesity
DM2
Recommendations:
- Leukocytosis resolved.
- Blood cultures NGTD
- MRSA screen negative
- Wound culture (02/03/2025) with gram-negative rods; culture without growth.
- I&D Wound culture (02/04/2025) with gram-positive rods; culture pending.
- Continue Zosyn for tonight
- tomorrow start linezolid 600 mg PO BID and augmentin 875/125 mg PO BID both for 7 more days
- selected linezolid due to tissue penetration with class III obesity
- follow up with PCP
����������������������������������������������������������
Chief Complaint
-: Other (Left medial thigh phlegmon/abscess)
Subjective / Review of Systems
afebrile
bp stable
less tenderness in the proximal leg
Vital Signs / Physical Exam
Vital Signs
Vital Signs
Temp Pulse Resp BP Pulse Ox
97.7 F 116 20 146/96 96
02/06/25 07:47 02/06/25 07:47 02/06/25 07:47 02/06/25 07:47 02/06/25 09:00
Physical Exam
Constitutional: No Acute Distress
Cardiovascular: Regular Rate and S1/S2; Negative Murmur or Rub
Pulmonary: Clear and Symmetric; Negative Wheezes or Rales
Gastrointestinal: Soft, Non Tender, Non Distended and Normal Bowel Sounds
Skin: Warm, Dry and Rash (erythema has notably regressed, less induration, less tender); Negative Jaundice
Objective Data
Lab Data
Lab Results
02/06/25 08:40
02/06/25 08:40
Estimated Creat Clear > 125 ml/min 02/06/25 08:40
Lactic Acid Cancelled 02/04/25 01:33
Total Bilirubin 1.2 mg/dl (0.2-1.3) 02/03/25 09:36
AST 29 U/L (17-59) 02/03/25 09:36
ALT 68 U/L (0-50) H 02/03/25 09:36
Alkaline Phosphatase 117 U/L (38-126) 02/03/25 09:36
Most recent labs reviewed.
Micro Results:
02/03/25 11:05 Blood Culture - Preliminary
Blood/Venous No Growth in 72 hours- Final report to follow
02/03/25 11:05 Blood Culture - Preliminary
Blood/Venous No Growth in 72 hours- Final report to follow
02/04/25 10:25 Wound Culture - Preliminary
Leg - Left Gram Stain - Preliminary
02/03/25 12:25 Wound Culture - Final
Abscess No growth
Gram Stain - Preliminary
02/03/25 11:16 Urine Culture - Final
Urine Staphylococcus epidermidis
02/03/25 14:13 MRSA Screen - Final
Nose No Methicillin Resistant Staphylococcus aureus isolated.
CT Scan: Image Reviewed and Report Reviewed (02/03 ct lower extremity phlegmon no abscess)
--- NOTE | 2025-02-06 15:28 | PN.CDI ---
CDI
- -
CDI:
Physician Documentation Request
Admit Date: 02/03/25 11:[address] Hummel,
[facility] is using an adapted version of the 2016 Third International Consensus Definitions for Sepsis and Septic Shock (Sepsis-3) where sepsis is defined as life threatening organ dysfunction caused by a deregulated host response to infection.
Please reference the official [facility] Sepsis Recognition Tool for further information, which can be found on the Intranet under Infection Prevention.
Clinical Indicators:
Patient admitted with sepsis and new onset diabetes mellitus.
02/06 PN, 'Sepsis due to L thigh cellulitis...leukocytosis and lactic acidosis have resolved'
Lactic acid level on admission/trend:
02/03/25 02/03/25
09:36 14:16
Lactic Acid 3.5 H 1.7
Based on your medical judgment, can you please clarify whether or not the above organ dysfunction is related to or due to sepsis?
-- Sepsis due to left thigh cellulitis with organ dysfunction of Lactic Acidosis, POA
-- Sepsis ruled out; Left thigh cellulitis only
-- Other (please specify)
-- Clinically unable to determine��
Use of terms such as suspected, likely, concern for, or probable (associated with a specific diagnosis that is being evaluated, monitored, or treated as if it exists) are acceptable and can be coded in the inpatient setting when documented at the
time of discharge.
Please use your independent medical judgement in providing your response.
Thank you,
GRACE Higgins RN
CDI Specialist
available via tiger text
[2025-02-06 15:50] VITALS: BP 145/75
--- NOTE | 2025-02-06 16:07 | CM ---
CM reviewed chart- ADC 1-2 days
DM edicator for insulin teaching
Pt had I&D abscess bedside on 02/04, follow for possible WOC needs
ID following for Zosyn right now, follow for abx tx plan
Discharge Disposition- anticipate home, follow abx and WOC plan/possible needs
[2025-02-06] MEDS: TAPAZOLE 7.5 MG PO (17:18)
[2025-02-06] MEDS: ZOSYN IV ×2 (17:18→17:54)
[2025-02-06] MEDS: TOPROL XL 25 MG PO (17:19)
[2025-02-06] MEDS: LOVENOX 40 MG SC (17:19)
[2025-02-06] MEDS: GLUCOPHAGE 500 MG PO (17:23)
[2025-02-06] MEDS: TYLENOL 1000 MG PO (17:41)
[2025-02-06 17:51] LABS: Glucose - Point of Care 137 mg/dl (70-99)
[2025-02-06] MEDS: AUGMENTIN 875 MG/125 MG 1 TABLET PO (20:46)
[2025-02-06] MEDS: ZYVOX 600 MG PO (20:47)
[2025-02-06 23:39] VITALS: BP 121/63
[2025-02-07 01:02] LABS: Glucose - Point of Care 187 mg/dl (70-99)
[2025-02-07 06:53] LABS: Hematocrit 43.3 % (39.0-52.0); Hemoglobin 15.3 g/dL (13.0-18.0); Mean Corp Hgb Conc. 35.3 g/dL (33.0-37.0); Mean Corpuscular Volume 87.8 fL (80.0-94.0); Platelet Count 243 10^3/uL (130-400); Red Cell Dist. Width 12.0 % (11.5-14.5)
[2025-02-07 07:17] LABS: Blood Urea Nitrogen 7 mg/dl (9-20); Calcium 8.9 mg/dl (8.4-10.2); Carbon Dioxide 25 mmol/L (22-30); Chloride 104 mmol/L (98-107); Estimated Creatinine Clearance > 125 ml/min; Glucose 171 mg/dl (70-99); Potassium 4.2 mmol/L (3.5-5.1); Sodium 135 mmol/L (135-145); eGFR > 60.00
[2025-02-07 07:36] LABS: Glucose - Point of Care 199 mg/dl (70-99)
--- NOTE | 2025-02-07 07:42 | PN.DE.MGMTRT ---
Insulin Management
- -
02/07/2025: Diabetes Management Consult Follow up
44 year old male who presented with Left thigh pain, swelling, and bleeding. Patient reports that symptoms began 3 to 4 days prior to presentation to the ED.
PMH: Graves disease, morbid Obesity. Was noted for elevated blood glucose of 485 on admission and was started on basal bolus insulin therapy.
A1C 9.5%, Cr 0.8, eGFR >60
Patient awake, alert, oriented, resting in bed, offers no complaints, able to discuss diabetes care plan.
States he routinely sees Endo Dr. Bloom for graves disease and was not aware of any pre-diabetes or Diabetes Dx.
Glucose range yesterday 124 to 194; received 32 units lantus in AM with 10 units novolog AC. Metformin 500 mg BID also started.
Fasting glucose today 199. Will continue premeal NovoLog 10 units and moderate corrective with meals. Will increase AM Lantus dose to 34 units.
Discussed with Nurse. Will cont to follow.
Pt was seen by Diabetes Nurse Educator for glucose monitor and insulin instructions.
Diabetes History
- -
Type of Diabetes: 2 requiring insulin
Pre-Admission Diabetes Regimen
02/06/25 02/07/25
08:40 06:13
Creatinine 1.0 0.8
Lab Results
Hemoglobin A1c 9.5 % (4.0-5.9) H 02/03/25 09:36
Insulin Pump Settings
IP Diabetes Regimen
02/06/25 02/06/25 02/06/25
07:44 08:40 11:47
Glucose 226 H
POC Glucose 194 H 124 H
02/06/25 02/06/25 02/07/25
17:49 21:34 06:13
Glucose 171 H
POC Glucose 137 H 187 H
02/07/25
07:35
Glucose
POC Glucose 199 H
Meal type: Lunch
Meal type: Breakfast
Amount consumed: 100%
Amount consumed: 100%
Patient Education
[2025-02-07 07:58] VITALS: BP 139/86
[2025-02-07] MEDS: NOVOLOG FLEXPEN-MODERATE RESISTANCE 1 UNITS SC (08:39)
[2025-02-07] MEDS: NOVOLOG FLEXPEN 10 UNITS SC ×2 (08:40→12:22)
[2025-02-07] MEDS: ZYVOX 600 MG PO (08:43)
[2025-02-07] MEDS: AUGMENTIN 875 MG/125 MG 1 TABLET PO (08:43)
[2025-02-07] MEDS: GLUCOPHAGE 500 MG PO (08:43)
[2025-02-07] MEDS: LANTUS 0.34 UNITS SC (09:33)
--- NOTE | 2025-02-07 09:49 | W.PN.ID1 ---
Date of Service
Date of Service: February 07, 2025
Today's Communication
- continue linezolid 600 mg PO BID and augmentin 875/125 mg PO BID both for 6 more days
- selected linezolid due to tissue penetration with class III obesity
- follow up with PCP
Assessment / Plan
Proximal left medial thigh phlegmon/abscess
Class III obesity
DM2
Recommendations:
- Leukocytosis resolved.
- Blood cultures NGTD
- Wound culture (02/03/2025) with gram-negative rods; culture without growth.
- I&D Wound culture (02/04/2025) with gram-positive rods; culture pending.
- continue linezolid 600 mg PO BID and augmentin 875/125 mg PO BID both for 6 more days
- selected linezolid due to tissue penetration with class III obesity
- follow up with PCP
����������������������������������������������������������
Chief Complaint
-: Other (Left medial thigh phlegmon/abscess)
Subjective / Review of Systems
afebrile
bp stable
lost IV access overnight and transitioned to oral antibiotics at that time
Vital Signs / Physical Exam
Vital Signs
Vital Signs
Temp Pulse Resp BP Pulse Ox
97.7 F 88 16 139/86 96
02/07/25 07:58 02/07/25 07:58 02/07/25 07:58 02/07/25 07:58 02/07/25 07:58
Physical Exam
Constitutional: No Acute Distress
Cardiovascular: Regular Rate and S1/S2; Negative Murmur or Rub
Pulmonary: Clear and Symmetric; Negative Wheezes or Rales
Gastrointestinal: Soft, Non Tender, Non Distended and Normal Bowel Sounds
Skin: Warm and Dry; Negative Rash (erythema and induration have resolved) or Jaundice
Objective Data
Lab Data
Lab Results
02/07/25 06:13
02/07/25 06:13
Estimated Creat Clear > 125 ml/min 02/07/25 06:13
Lactic Acid Cancelled 02/04/25 01:33
Total Bilirubin 1.2 mg/dl (0.2-1.3) 02/03/25 09:36
AST 29 U/L (17-59) 02/03/25 09:36
ALT 68 U/L (0-50) H 02/03/25 09:36
Alkaline Phosphatase 117 U/L (38-126) 02/03/25 09:36
Most recent labs reviewed.
Micro Results:
02/03/25 12:25 Wound Culture - Final
Abscess No growth
Gram Stain - Final
02/03/25 11:05 Blood Culture - Preliminary
Blood/Venous No Growth in 72 hours- Final report to follow
02/03/25 11:05 Blood Culture - Preliminary
Blood/Venous No Growth in 72 hours- Final report to follow
02/04/25 10:25 Wound Culture - Preliminary
Leg - Left Gram Stain - Preliminary
02/03/25 11:16 Urine Culture - Final
Urine Staphylococcus epidermidis
02/03/25 14:13 MRSA Screen - Final
Nose No Methicillin Resistant Staphylococcus aureus isolated.
--- NOTE | 2025-02-07 10:51 | W.PN.HOSP.TC ---
Addendum entered and electronically signed by Audie Hummel MD 02/07/25 11:18:
Sepsis due to left thigh cellulitis with organ dysfunction of Lactic Acidosis, POA
Original Note:
Today's Communication/Plan
-
monitor vitals
see plan
cw wound care per surgery
cw PO abx
Comfortable taking insulin
Discharge today
Time of discharge 38 minutes
Assessment / Plan
Assessment / Plan
Gen: NAD, AAOx3.
Eyes: EOMI, PERRLA, no scleral icterus.
Neck: supple.
CV: remains RRR, +S1/S2, no m/r/g.
Resp: CTAB anteriorly, no rales, wheezes, or rhonchi.
Abd: +BS, soft, NT, ND
Skin: L medial thigh with large area of warmth, edema, central opening from I&D.
Neuro: CN 2-12 intact, non-focal.
Psych: Normal mood and affect.
02/03/25 12:25 Abscess Wound Culture - Preliminary
No growth
02/03/25 12:25 Abscess Gram Stain - Preliminary
02/04/25 10:25 Leg - Left Gram Stain - Preliminary
02/03/25 14:13 Nose MRSA Screen - Final
No Methicillin Resistant Staphylococcus aureus isolated.
02/03/25 11:05 Blood/Venous Blood Culture - Preliminary
No Growth in 24 hours- Final report to follow
02/03/25 11:05 Blood/Venous Blood Culture - Preliminary
No Growth in 24 hours- Final report to follow
02/03/25 11:16 Urine Urine Culture - Preliminary
Staphylococcus species
CT LLE: Edematous changes with overlying skin thickening of the superficial fatty soft tissues of the proximal medial left thigh. No CT findings to confirm accompanying well-formed abnormal focal fluid collection such as an abscess.
Sepsis due to L thigh cellulitis:
- new dx of DM2 which contributed to cellulitis
-CT LLE without abscess formation
-I&D performed at bedside 02/05
-cont Zosyn as per ID (was on Vanco, now off). now switched antibiotics to linezolid 600 mg PO BID and augmentin 875/125 mg PO BID both for 6 more days
-surgery following, wound care per surgery
-leukocytosis and lactic acidosis have resolved
New Dx DM2:
-a1c 9.5%
-Lantus 32U and premeal Novolog 10U
-mod res SSI/accuchecks
Diabetes ASSET MANAGEMENT COORDINATOR following, continue with insulin. also started on metformin
Patient is now comfortable giving himself insulin. He will also follow-up with outside sales account manager outpatient.
Graves disease:
-cont methimazole/BB
Tobacco abuse d/o:
-encourage smoking cessation
-will offer nicotine patch
Morbid obesity due to excess calories:
-Encourage weight loss
-Affects all aspects of care
FULL/Lovenox
Anticipated Discharge: Today
Subjective/Interval History
-
Date of Service: February 07, 2025
denies nausea
Objective Data
-
Labs:
Laboratory Results
02/07/25
06:13
WBC 6.3
Hgb 15.3
Hct 43.3
Plt Count 243
Sodium 135
Potassium 4.2
Chloride 104
Carbon Dioxide 25
BUN 7 L
Creatinine 0.8
Glucose 171 H
Calcium 8.9
Vital Signs:
Vital Signs
Temp Pulse Resp BP Pulse Ox
97.7 F 88 16 139/86 96
02/07/25 07:58 02/07/25 07:58 02/07/25 07:58 02/07/25 07:58 02/07/25 07:58
I&O
02/06/25 02/07/25 02/08/25
06:59 06:59 06:59
Intake Total 1959 1200 / 1200
Balance 1959 1200 / 1200
--- NOTE | 2025-02-07 11:17 | W.DCSUMMARY ---
Discharge Summary
Discharge Data
Date of Admission: 02/03/25
Date of Discharge: 02/07/25
-
Pending Results: No
Hospital Course
44-year-old male with history of morbid obesity, Graves' disease, tobacco abuse came to the hospital with sepsis secondary to left thigh cellulitis along with developing abscess. Patient required bedside I&D by surgery. Wound culture grew
gram-negative rods and gram-positive rods. Patient was seen by infectious disease throughout hospitalization and initially was on IV antibiotics. On discharge infectious disease recommended linezolid and Augmentin to complete the course. On this
hospitalization patient was also found to have new onset diabetes mellitus and was started on insulin. Patient was seen by diabetes nurse practitioner on this hospitalization. On discharge patient was instructed to follow-up with rescue boat operator
closely outpatient. Once his symptoms continue to improve over time, he was then discharged home with instructions to follow closely with all his physicians outpatient.
Discharge Plan
-
Patient Disposition: Home with Home Care
Discharge Diagnosis/Procedures: Sepsis due to proximal left medial thigh phlegmon/abscess with cellulitis
DM2
Condition: Fair
Diet: Diabetic, Carb Controlled
Activity: No restrictions
Driving Restrictions: As prior to admission
Bathing Restrictions: None
Activity Restrictions/Additional Instructions:
Follow-up with your rescue boat operator outpatient
Pack open area with clean gauze and cover with silicone dressing. change daily and prn.
Referrals:
Saleem Kumar MD [Active, Surgical] - in one week
UNKNOWN - PT NOT,INTERVIEWE [Family Provider, Internal Medicine] - in less than 1 week
Prescriptions:
New
metformin 500 mg Tablet
500 mg PO BID@0800,1700 Qty: 60 0RF
linezolid 600 mg Tablet
600 mg PO BID Qty: 12 0RF
amoxicillin-pot clavulanate 875-125 mg Tablet
1 tab PO Q12 6 Days Qty: 12 0RF
oxycodone 5 mg Tablet
5 mg PO Q4HPRN PRN (Reason: severe pain) Qty: 10 0RF
acetaminophen [Tylenol Extra Strength] 500 mg Tablet
1,000 mg PO Q6HPRN PRN (Reason: mild pain) Qty: 0 0RF
(DME) Contour Next Test Strips Strip
Qty: 200 0RF
Rx Instructions:
As Directed
insulin aspart U-100 [Novolog FlexPen U-100 Insulin] 100 unit/mL (3 mL) Insulin Pen
10 unit SC AC Qty: 5 0RF
insulin glargine [Basaglar KwikPen U-100 Insulin] 100 unit/mL (3 mL) Insulin Pen
34 unit SC DAILY Qty: 5 0RF
(DME) lancets [Color Lancets] 21 gauge Misc
Qty: 200 0RF
Rx Instructions:
As Directed
(DME) pen needle, diabetic [Michelle Pen Needle] 32 gauge x 5/32' Needle
Qty: 200 1RF
Rx Instructions:
E11.65 use new needle with each injection 4 times per day
Continued
methimazole 5 mg tablet
7.5 mg PO QPM
metoprolol succinate 25 mg tablet extended release 24 hr
25 mg PO QPM
Medical Marijuana
1 inh inhalation HS
Discharge Orders:
Discharge Patient (As Directed); Ordered 02/07/25
Ordered By: Audie Hummel
Discharge Date and Time
Discharge Date/Time: 02/07/25 13:05
Print Language: IRISH
[2025-02-07] MEDS: NOVOLOG FLEXPEN-MODERATE RESISTANCE SC (12:24)
--- NOTE | 2025-02-07 12:36 | CM ---
CM reviewed pt with attending- cleared for dc today
Started on new insulin and will need wound care, plan for PO abx on dc
Bedside visit with pt- dc questions answered
Referral made to VN liaison per request- pt accepted for SOC tomorrow
VN order on chart
Discharge Disposition - home with [facility]
--- NOTE | 2025-02-07 12:58 | PTCARENOTE ---
02/07/2025 DIABETES EDUCATION CONSULT
Met with patient per his request yesterday for reinforcement on insulin injection and self monitoring glucose. Patient is ready for discharge, he states the RN's have assisted him since our meeting yesterday and he feels comfortable with injecting
insulin and checking bloods. Patient has phone # for diabetes education department, will contact us with any further questions once home.
--- NOTE | 2025-02-07 13:18 | VNURNOTE ---
It Security Project Manager met with patient to discuss [facility] nurse/therapy, visits, schedule and homebound status. Patient is agreeable and understands that visits at home will be 2-3 x per week to assess and teach medical management.
Patient is aware that [facility] will contact them for start of care in 1-2 days after discharge from .
[facility]N referral completed in [facility].
[2025-02-07 17:17] LABS: Glucose - Point of Care 124 mg/dl (70-99)
== END 2025-02-07 13:05 | disposition home health service (06) | DRG 872 ==
LOC: 2 NORTH 11:42
PROVIDERS: Student in an Organized Health Care Education/Training Program; ADMITTING PHYSICIAN Internal Medicine; ATTENDING PHYSICIAN Internal Medicine; CONSULT PHYSICIAN Student in an Organized Health Care Education/Training Program; EMERGENCY PHYSICIAN Emergency Medicine; OTHER PHYSICIAN Surgery
DX: A41.9 Sepsis, unspecified organism (principal); L03.90 Cellulitis, unspecified; L02.416 Cutaneous abscess of left lower limb; E87.20 Acidosis, unspecified; Z68.43 Body mass index [BMI] 50.0-59.9, adult; E11.9 Type 2 diabetes mellitus without complications; E05.00 Thyrotoxicosis with diffuse goiter without thyrotoxic crisis or storm; E66.813 Obesity, class 3; F17.200 Nicotine dependence, unspecified, uncomplicated; I83.90 Asymptomatic varicose veins of unspecified lower extremity; F41.9 Anxiety disorder, unspecified; J45.909 Unspecified asthma, uncomplicated; E66.01 Morbid (severe) obesity due to excess calories
CPT/HCPCS: 73701; 80048; 80053; 81003; 81015; 82010; 82962; 83036; 83605; 85025; 85027; 87040; 87070; 87077; 87086; 87147; 87186; 87205; 96361; 96365; 96367; 99284; 99406; Q9967